=== PATIENT | female | born 1930 | race Caucasian/White ===

== ENCOUNTER 2016-06-28 09:54 | Outpatient (CLI) | payer MEDICARE, OTHER ==
[2016-06-28 13:08] LABS: #Eosinphils 0.1 thou/uL (0.0-0.7); #Lymphocytes 1.8 thou/uL (1.20-3.40); #Monocytes 0.5 thou/uL (0.11-0.59); #Neutrophils 4.9 thou/uL (1.40-6.50); %Basophils 0.6 % (0.0-1.0); %Eosinophils 0.7 % (0.0-10.0); %Lymphocytes 24.9 % (21.0-51.0); %Monocytes 7.2 % (0.0-10.0); %Neutrophils 66.6 % (42.0-75.0); Hemoglobin 14.5 g/dL (12.0-16.0); Mean Corpuscular HGB CONC 32.5 g/dL (32.0-36.0); Mean Corpuscular Volume 89.2 fl (81.0-99.0); Mean Platelet Volume 7.3 fL (7.4-10.4); Platelet Count 182 thou/uL (130-400); RBC Distribution Width 13.1 % (11.5-14.5); Red Blood Cell (RBC) Count 5.02 mill/uL (4.20-5.40); White Blood Cell (WBC) Count 7.4 thou/uL (4.8-10.8)
[2016-06-28 13:33] LABS: Hemoglobin A1c 5.2 % (4.0-6.0)
[2016-06-28 13:34] LABS: ALT (SGPT) 33 U/L (8-55); AST (SGOT) 31 U/L (5-34); Albumin 4.1 g/dL (3.4-4.8); Alkaline Phosphatase 61 U/L (40-150); Anion Gap 16 mmol/L (10-20); BUN (Urea Nitrogen) 20 mg/dL (9.8-20.1); Bilirubin, Direct 0.5 mg/dL (0.1-0.3); Bilirubin, Total 1.2 mg/dL (0.2-1.2); Calc. Creatinine Clearance 0 mL/min (70-130); Calcium 9.2 mg/dL (7.8-10.44); Carbon Dioxide 25 mmol/L (23-31); Cardiac Risk 2.2 (Less than 4.5); Chloride 102 mmol/L (98-107); Cholesterol 115 mg/dl (< 200 Desired); Estimated GFR-MDRD 58; Glucose 94 mg/dL (83-110); HDL Cholesterol 52 mg/dL (>60 Neg Risk); LDL Cholesterol, Calculated 42 mg/dL; Potassium 3.9 mmol/L (3.5-5.1); Protein, Total 6.6 g/dL (6.0-8.3); Sodium 139 mmol/L (136-145); Triglycerides 103 mg/dL (Less than 150)
[2016-06-28 14:04] LABS: INR-International Normal Ratio 2.5; Prothrombin Time 28.2 SEC (12.0-14.7)
== END 2016-06-28 09:55 ==
LOC: NAVSJIPCSP 09:54
PROVIDERS: ATTEND Family Medicine
DX: I11.0 Hypertensive heart disease with heart failure (principal); I50.21 Acute systolic (congestive) heart failure; I48.91 Unspecified atrial fibrillation; Z79.899 Other long term (current) drug therapy; Z79.01 Long term (current) use of anticoagulants
CPT/HCPCS: 36415; 80048; 80061; 80076; 83036; 84443; 85025; 85610

== ENCOUNTER 2016-08-12 11:06 | Outpatient (CLI) | payer MEDICARE ==
[2016-08-12 12:11] LABS: INR-International Normal Ratio 2.3; Prothrombin Time 26.1 SEC (12.0-14.7)
== END 2016-08-12 11:07 | disposition home or self-care (01) ==
LOC: EDBD 11:06 → MERGE 11:06 → NAVSJIPCSP 11:06
PROVIDERS: ATTEND Family Medicine
DX: Z51.81 Encounter for therapeutic drug level monitoring (principal); Z79.01 Long term (current) use of anticoagulants
CPT/HCPCS: 36415; 85610

== ENCOUNTER 2016-09-28 11:25 | Outpatient (CLI) | payer MEDICARE ==
[2016-09-28 11:49] LABS: INR-International Normal Ratio 2.6; Prothrombin Time 28.9 SEC (12.0-14.7)
== END 2016-09-28 11:26 | disposition home or self-care (01) ==
LOC: NAV LAB 11:25
PROVIDERS: ATTEND Family Medicine
DX: Z51.81 Encounter for therapeutic drug level monitoring (principal); Z79.01 Long term (current) use of anticoagulants
CPT/HCPCS: 36415; 85610

== ENCOUNTER 2017-06-06 10:38 | Inpatient (IN) | payer MEDICARE ==
[2017-06-06] MEDS ORDERED: Furosemide 40 MG/4 ML VIAL ONE ×2 (11:23→13:04)
[2017-06-06 11:31] LABS: #Basophils 0.1 thou/uL (0.0-0.2); #Lymphocytes 0.9 thou/uL (1.20-3.40); #Monocytes 0.4 thou/uL (0.11-0.59); #Neutrophils 7.9 thou/uL (1.40-6.50); %Basophils 0.6 % (0.0-1.0); %Eosinophils 0.2 % (0.0-10.0); %Lymphocytes 9.4 % (21.0-51.0); %Monocytes 4.8 % (0.0-10.0); Hemoglobin 10.1 g/dL (12.0-16.0); Mean Corpuscular HGB CONC 32.3 g/dL (32.0-36.0); Mean Corpuscular Hemoglobin 28.5 pg (27.0-31.0); Mean Corpuscular Volume 88.3 fl (81.0-99.0); Mean Platelet Volume 7.6 fL (7.4-10.4); Platelet Count 182 thou/uL (130-400); RBC Distribution Width 12.8 % (11.5-14.5); Red Blood Cell (RBC) Count 3.55 mill/uL (4.20-5.40); White Blood Cell (WBC) Count 9.3 thou/uL (4.8-10.8)
--- NOTE | 2017-06-06 11:37 | RAD ---
PORTABLE AP CHEST RADIOGRAPH: Date: 06-06-17 History: Dyspnea. Shortness of breath. Near syncopal episode. Comparison: 01-23-16 FINDINGS: The cardiac silhouette is markedly enlarged. There is ectasia and tortuosity of the thoracic aorta wh ich is also partially calcified. Pulmonary vasculature is within normal limits. There is blunting of the right lateral costophrenic angle, some of which is probably related to overlying soft tissue dens ity, but small right pleural effusion and/or atelectasis is suspected. Surgical clips again overly th e left axillary region. No other interval change. There is osteopenia. IMPRESSION: 1. Marked cardiomegaly without overt CHF. 2. Ectatic and tortuous partially calcified thoracic aorta. 3. Small right pleural effusion and atelectasis. POS: [facility]
[2017-06-06 11:41] LABS: INR-International Normal Ratio 3.4; PTT 42.8 SEC (22.9-36.1); Prothrombin Time 35.5 SEC (12.0-14.7)
[2017-06-06 11:44] LABS: CKMB 0.8 ng/mL (0-6.6)
[2017-06-06 11:47] LABS: ALT (SGPT) 14 U/L (8-55); AST (SGOT) 17 U/L (5-34); Albumin 3.9 g/dL (3.4-4.8); Alkaline Phosphatase 60 U/L (40-150); Anion Gap 17 mmol/L (10-20); BUN (Urea Nitrogen) 34 mg/dL (9.8-20.1); Bilirubin, Total 1.2 mg/dL (0.2-1.2); CK (CPK) 30 U/L (29-168); Calc. Creatinine Clearance 0 mL/min (70-130); Carbon Dioxide 26 mmol/L (23-31); Chloride 102 mmol/L (98-107); Estimated GFR-MDRD 30; Globulin 2.3 g/dL (2.4-3.5); Glucose 114 mg/dL (83-110); Potassium 3.5 mmol/L (3.5-5.1); Protein, Total 6.2 g/dL (6.0-8.3); Sodium 141 mmol/L (136-145)
[2017-06-06] MEDS ORDERED: Ondansetron HCl/PF 4 MG/2 ML Vial IVP PRN (14:00)
[2017-06-06] MEDS ORDERED: Acetaminophen 325 MG TAB PO PRN (14:00)
[2017-06-06] MEDS ORDERED: Ondansetron ODT 4 MG TAB SL PRN (14:00)
[2017-06-06 15:17] LABS: CKMB 0.8 ng/mL (0-6.6); Troponin I 0.016 ng/mL (< 0.028)
[2017-06-06] MEDS ORDERED: PROVENTIL INHALER 6.7 G (200 INHALATIONS) INH PRN (19:59)
[2017-06-06] MEDS ORDERED: Furosemide 40 MG/4 ML VIAL IVP SCH (21:00)
[2017-06-06] MEDS ORDERED: Pravastatin Sodium 40 MG TAB PO SCH (21:00)
[2017-06-06] MEDS: Montelukast Sodium 10 mg Tablet PO SCH (21:59)
[2017-06-06] MEDS: Atorvastatin Calcium 20 MG TAB PO SCH (21:59)
--- NOTE | 2017-06-06 22:12 | HP ---
DATE OF ADMISSION: 06/07/2017 HISTORY OF PRESENT ILLNESS: Ms. Meier is a very pleasant 86-year-old white female that presented to the emergency room with a 3-5 day history of shortness of breath, worse in the morning. She has h istory of CHF along with chronic atrial fibrillation, acute systolic heart failure in the past, and h ypertension. Her head mechanic is Dr. Ames. She was seen in the emergency room and found to be in acute CHF and was given IV Lasix 40 twice. She diuresed and admitted to the hospital for further evaluation and treatment. PAST MEDICAL HISTORY: Positive for the followin. Hypertension. 2. Chronic atrial fibrillation followed by Dr. Ames. 3. Hyperlipidemia. 4. Hypercholesterolemia. 5. History of arrhythmia, specifically SVT. 6. Long-term use of anticoagulant. 7. Anxiety, depressive disorder. 8. Anemia. PAST SURGICAL HISTORY: 1. 1973, appendectomy. 2. 1973, total abdominal hysterectomy. 3. 1997, breast surgery. 4. 1998, breast surgery. 5. 1990, fibrocystic disease, breast surgery. 6. 2004, right cataract done by Dr. Ramírez. 7. 2008, cholecystectomy. 8. 2009, left cataract. 9. Abdominal hernia repair with a large mesh by Dr. Jeong in 2010. FAMILY HISTORY: Reveals patient's father at age 81 of [place]. The patient's mother at age 64 of [place]. Patient has two brothers have . Patient had 2 daughters that are alive. Spouse i s . Patient has 3 brothers, 2 sisters, one son and two daughters, all healthy. SOCIAL HISTORY: Reveals patient does smoke, does not drink, does not use drugs. She has a soda or t ea once a day. She is retired and she is . She has 2 girls, 1 boy, and basically lives alone with no pets. CURRENT MEDICATIONS: Reveal she has the following, 1. Warfarin 4 mg daily. 2. Aspirin 81 mg daily. 3. Metoprolol succinate 100 mg daily. 4. Avalide, which is irbesartan-hydrochlorothiazide 300-12.5 one every day. 5. Cardizem 240 mg daily. 6. Furosemide 20 mg daily. 7. Potassium chloride 10 mEq daily. 8. Pravastatin 80 mg a day. 9. Singulair 10 mg a day every evening. 10. Bupropion 150 mg extended-release every morning. 11. ProAir 2 puffs p.r.n. wheezing. 12. Iron 325 mg daily. 13. Vitamin D3 of 1000 mg daily. 14. Marrow 128, which is ointment, ophthalmic once a day. REVIEW OF SYSTEMS: Reveal the patient has not had any fever, chills, night sweats, or weight change. Head is negative for headaches, head injury. Eyes: Negative for visual changes. Ears: Negative for change or hearing. Nose, throat, and mouth: Negative for rhinorrhea, cough, cold, or congestion . Respiratory: Negative for hemoptysis or productive sputum, but positive for dyspnea on exertion, just plain shortness of breath usually every morning. Cardiology: Negative for PND, but positive fo r edema and FONSECA. Negative for chest pain. Negative for claudication. GI: Negative for nausea, vom iting, diarrhea, constipation. Genitourinary: Negative for nocturia, urgency, frequency, hematuria, or dysuria, incontinence. Musculoskeletal: Negative for joint swelling, joint pain, stiffness, mus toya weakness. Integument: Negative for rash, skin lesions, or jaundice. Endocrine: Negative for he at or cold intolerance, hair loss, change in skin color, polydipsia, polyphagia, or polyuria. PHYSICAL EXAMINATION: GENERAL: This is a well-developed, well-nourished, very pleasant white female in no apparent distres s at this time. Apparently in the ER, she was significantly short of breath. She received diuresis and some oxygen. HEENT: Reveals normocephalic, nontraumatic cranium. Pupils are equally round and reactive. Extraoc ular muscle movements intact. Sclerae are nonicteric. NECK: Supple, without masses, nodes, or bruits. No jugular venous distention is noted. CHEST: Clear to auscultation. No rales, no rhonchi, no wheezes or cough is noted. HEART: Patient does have minimal crackles in the right and left base. Heart exam reveals irregularl y irregular rate and rhythm with a 2/6 systolic ejection murmur and the patient is in chronic atrial fib. ABDOMEN: Soft, slightly distended, nontender with normal bowel sounds. Possible fluid with mild asc ites. No CVA tenderness. EXTREMITIES: Reveal no clubbing, cyanosis, but 1+ edema. Peripheral pulses are equal and palpable. NEUROLOGIC: Patient has no focal findings. ASSESSMENT: 1. Acute on chronic systolic heart failure. 2. History of chronic atrial fibrillation. 3. Hypertension. 4. Hyperlipidemia. 5. History of arrhythmia of supraventricular tachycardia. 6. Generalized weakness. PLAN: Patient is admitted to the [facility] in [place]. We will admit h er for CHF and gently diurese her. We will follow her electrolytes and continue with IV Lasix at thi s time.
[2017-06-07 05:56] LABS: INR-International Normal Ratio 3.5; Prothrombin Time 36.8 SEC (12.0-14.7)
[2017-06-07 05:57] LABS: #Basophils 0.1 thou/uL (0.0-0.2); #Eosinphils 0.1 thou/uL (0.0-0.7); #Lymphocytes 1.7 thou/uL (1.20-3.40); #Monocytes 0.7 thou/uL (0.11-0.59); #Neutrophils 6.1 thou/uL (1.40-6.50); %Basophils 0.7 % (0.0-1.0); %Eosinophils 1.1 % (0.0-10.0); %Lymphocytes 19.7 % (21.0-51.0); %Monocytes 7.7 % (0.0-10.0); %Neutrophils 70.8 % (42.0-75.0); Hemoglobin 9.1 g/dL (12.0-16.0); Mean Corpuscular HGB CONC 32.4 g/dL (32.0-36.0); Mean Corpuscular Hemoglobin 28.7 pg (27.0-31.0); Mean Corpuscular Volume 88.6 fl (81.0-99.0); Mean Platelet Volume 7.6 fL (7.4-10.4); Platelet Count 152 thou/uL (130-400); RBC Distribution Width 12.8 % (11.5-14.5); Red Blood Cell (RBC) Count 3.18 mill/uL (4.20-5.40); White Blood Cell (WBC) Count 8.6 thou/uL (4.8-10.8)
[2017-06-07] MEDS: Furosemide 40 MG/4 ML VIAL IVP SCH ×2 (06:23→14:21)
[2017-06-07] MEDS: Dronedarone HCl 400 MG TAB PO SCH ×2 (08:11→17:12)
[2017-06-07] MEDS: Ferrous Sulfate 325 MG TAB PO SCH (08:12)
[2017-06-07] MEDS: Hydrochlorothiazide 25 MG TAB PO SCH (08:12)
[2017-06-07] MEDS: Bupropion 150 MG XL TAB PO SCH (08:12)
[2017-06-07] MEDS: Potassium Chloride 10 MEQ TAB PO SCH (08:12)
[2017-06-07] MEDS: Aspirin 81 mg Enteric Coated Tablet PO SCH (08:13)
[2017-06-07] MEDS ORDERED: Non-Formulary Item 1 EACH (Irbesartan/Hydrochlorothiazide [Irbesartan-Hctz 300-12.5 Mg Tb PO SCH (09:00)
[2017-06-07] MEDS ORDERED: Aspirin 81 mg Enteric Coated Tablet PO SCH (09:00)
[2017-06-07] MEDS ORDERED: Sodium Chloride 0.9% 10 ML ONE (14:23)
[2017-06-07] MEDS ORDERED: Warfarin Sodium 2 MG TAB PO SCH (17:00)
--- NOTE | 2017-06-07 20:26 | PRG ---
DATE OF SERVICE: 06/07/2017 SUBJECTIVE: Ms. Meier is a very pleasant 86-year-old white female, who presented to the emergency room with 3-5 day history of increasing shortness of breath, worse in the morning. She has a histor y of CHF and chronic atrial fib in the past, she has not wanted to treat those. She also has acute s ystolic heart failure in the past and hypertension. Her peoplesoft hcm developer is Dr. Ames. She was seen in the emergency room and found to be in acute CHF and was given IV Lasix twice. She was diuresed a nd admitted to the hospital for further evaluation. Today, the patient states she feels better, although she is still short of breath when she walks more than to the bathroom or back. She states she was urinating quite a bit. Unfortunately, C-reactive protein was done today instead o f her CMP. OBJECTIVE: VITAL SIGNS: Today reveal blood pressure 119/56 this morning, pulse 79, respirations 18, O2 sat 94%, T-max is 98.0. GENERAL: This is a well-developed, well-nourished, very pleasant white female, in no apparent distre ss at this time. HEENT: Reveals normocephalic, nontraumatic cranium. The pupils are equally round and reactive. Ext raocular movements are intact. Nose and throat are slightly dry, but clear. NECK: Supple without masses, nodes or bruits. LUNGS: The chest reveals no rales, rhonchi or wheezes. No cough is noted. The patient has no crack les today. Breath sounds are noted to be distant. CARDIOVASCULAR: Heart reveals irregularly irregular rate and rhythm with a 2/6 systolic ejection mur mur. The patient has chronic atrial fib. ABDOMEN: Slightly distended. It is nontender with normal bowel sounds in all 4 quadrants. It seems like the patient may have some ascites. No CVA tenderness is noted. GENITOURINARY: Deferred. EXTREMITIES: Reveal no clubbing, cyanosis with 1+ edema, which is slightly decreased in admission. Peripheral pulses are difficult to feel today. The patient has no focal findings. LABORATORY DATA: Today revealed white count 8000 with hemoglobin 9.1, hematocrit 28.2, and platelet count 152,000. Her INR is 3.5 and her Coumadin is on hold. Her BNP is up from 442.5 to 638.1. IMPRESSION: 1. Acute on chronic systolic heart failure. 2. History of chronic atrial fibrillation. 3. Hypertension. 4. Hyperlipidemia. 5. History of arrhythmia with supraventricular tachycardia. 6. Generalized weakness. PLAN: 1. The patient will continue diurese. We will repeat labs tomorrow morning. 2. We will continue to follow this patient closely. 3. The patient in the past has not wanted any heroic methods. We will continue to follow her electr olytes, especially her BNP and her renal indices. We will slowly diurese her.
[2017-06-07] MEDS: Atorvastatin Calcium 20 MG TAB PO SCH (21:16)
[2017-06-07] MEDS: Montelukast Sodium 10 mg Tablet PO SCH (21:16)
[2017-06-08 05:53] LABS: INR-International Normal Ratio 2.4; Prothrombin Time 27.5 SEC (12.0-14.7)
[2017-06-08 06:05] LABS: ALT (SGPT) 12 U/L (8-55); AST (SGOT) 19 U/L (5-34); Albumin 3.5 g/dL (3.4-4.8); Alkaline Phosphatase 52 U/L (40-150); Anion Gap 11 mmol/L (10-20); BUN (Urea Nitrogen) 35 mg/dL (9.8-20.1); Bilirubin, Total 1.2 mg/dL (0.2-1.2); Calc. Creatinine Clearance 26 mL/min (70-130); Calcium 8.6 mg/dL (7.8-10.44); Carbon Dioxide 31 mmol/L (23-31); Chloride 101 mmol/L (98-107); Estimated GFR-MDRD 30; Glucose 92 mg/dL (83-110); Potassium 3.2 mmol/L (3.5-5.1); Protein, Total 5.5 g/dL (6.0-8.3); Sodium 140 mmol/L (136-145)
[2017-06-08] MEDS: Furosemide 40 MG/4 ML VIAL IVP SCH ×2 (06:21→14:31)
[2017-06-08] MEDS: Sodium Chloride 0.9% 10 ML ONE (06:21)
[2017-06-08] MEDS ORDERED: Sodium Chloride 0.9% 10 ML ONE ×2 (06:23→15:29)
[2017-06-08] MEDS: Dronedarone HCl 400 MG TAB PO SCH ×2 (09:26→17:48)
[2017-06-08] MEDS: Ferrous Sulfate 325 MG TAB PO SCH (09:26)
[2017-06-08] MEDS: Potassium Chloride 10 MEQ TAB PO SCH (09:27)
[2017-06-08] MEDS: Hydrochlorothiazide 25 MG TAB PO SCH (09:27)
[2017-06-08] MEDS: Aspirin 81 mg Enteric Coated Tablet PO SCH (09:27)
[2017-06-08] MEDS: Bupropion 150 MG XL TAB PO SCH (09:27)
[2017-06-08] MEDS ORDERED: Warfarin Sodium 2 MG TAB PO SCH (17:00)
--- NOTE | 2017-06-08 17:02 | PRG ---
DATE OF ADMISSION: 06/06/2017 DATE OF SERVICE: 06/08/2017 HISTORY OF PRESENT ILLNESS: Ms. Meier is an 86-year-old very pleasant white female, who presented to the hospital emergency room with shortness of breath. She was deemed to have acute exacerbation of her systolic congestive heart failure. She does have a history of chronic atrial fibrillation and hypertension. Her felting machine operator is Dr. Ames. She was in the ER, given some IV Lasix and admitt ed to the hospital for continued diuresis. The patient states that today she finally feels a little bit better. She is much less short of breat h. She was able to walk around the nurse's station once. She states she has been urinating quite a bit, but she got Lasix about 20 minutes ago and has not urinated yet. The patient states she is eating well and she feels so much better. She is not short of breath just going to the bathroom. PHYSICAL EXAMINATION: VITAL SIGNS: Today reveal blood pressure this morning was 108/53, pulse 75-79, respirations 18, O2 s at on room air was not measured. T-max is 98.3. GENERAL: This is a well-developed, well-nourished, very pleasant white female, in no apparent distre ss at this time. HEENT: Reveals normocephalic, nontraumatic cranium. Pupils are equal, round, and reactive. Extraoc ular movements are intact. Nose and throat are slightly dry, but clear. NECK: Supple, without masses, nodes, or bruits. LUNGS: Chest is clear to auscultation. No rales, rhonchi or wheezes are heard. No cough is noted t vera. Breath sounds are still distant, but no crackles are noted. HEART: Reveals an irregularly irregular rate and rhythm with a 2/6 systolic murmur. Patient does duckworth ve chronic atrial fib. The patient also does have an enlarged aorta that she has declined surgery fo r. ABDOMEN: Soft, nontender, without organomegaly. Slightly distended. Normal bowel sounds noted in a ll 4 quadrants. No CVA tenderness is noted. : Deferred. EXTREMITIES: Reveal no clubbing, cyanosis, and no edema is noted today. Peripheral pulses are stabl e. LABORATORY DATA: Reveals white count 8600, hemoglobin 9.1, hematocrit 28.2 with a platelet count of 152,000. INR this morning was 2.4, so she will restart her Coumadin today. Sodium 140, potassium 3.2, chloride 101, carbon dioxide 31 with a BUN of 35 and creatinine 1.62, whic h is basically stable. Her BNP yesterday was 638. Basically stable today at 659. IMPRESSION: 1. Acute on chronic systolic heart failure. 2. History of chronic atrial fibrillation. 3. History of aortic aneurysm. 4. Hypertension. 5. Hyperlipidemia. 6. History of arrhythmia with supraventricular tachycardia. 7. Generalized weakness. 8. Chronic kidney disease, stage 3. PLAN: 1. The patient will continue with IV diuresis, most likely will decrease to oral Lasix tomorrow. 2. We will repeat labs tomorrow morning. 3. We will continue to follow this patient closely. 4. The patient has been made a DNR per her request. 5. We will continue with diuresis.
[2017-06-08] MEDS: Atorvastatin Calcium 20 MG TAB PO SCH (20:54)
[2017-06-08] MEDS: Montelukast Sodium 10 mg Tablet PO SCH (20:54)
[2017-06-09 05:18] VITALS: BMI 24.8
[2017-06-09] MEDS: Sodium Chloride 0.9% 10 ML ONE (06:22)
[2017-06-09] MEDS: Furosemide 40 MG/4 ML VIAL IVP SCH (06:23)
[2017-06-09 07:45] VITALS: BP 113/56; TEMP 97.8
[2017-06-09] MEDS: Dronedarone HCl 400 MG TAB PO SCH (08:04)
[2017-06-09] MEDS: Hydrochlorothiazide 25 MG TAB PO SCH (08:04)
[2017-06-09] MEDS: Ferrous Sulfate 325 MG TAB PO SCH (08:05)
[2017-06-09] MEDS: Aspirin 81 mg Enteric Coated Tablet PO SCH (08:05)
[2017-06-09] MEDS: Bupropion 150 MG XL TAB PO SCH (08:05)
[2017-06-09] MEDS: Potassium Chloride 10 MEQ TAB PO SCH (08:05)
== END 2017-06-09 09:58 | DRG 291 ==
LOC: EDBD → NAV ERS 10:38 → NAV ACUTE 13:52
PROVIDERS: ADMIT Family Medicine; ATTEND Family Medicine
DX: I13.0 Hypertensive heart and chronic kidney disease with heart failure and stage 1 through stage 4 chronic kidney disease, or unspecified chronic kidney disease (principal); I50.23 Acute on chronic systolic (congestive) heart failure; J44.9 Chronic obstructive pulmonary disease, unspecified; I48.2 Chronic atrial fibrillation; D64.9 Anemia, unspecified; I47.1 Supraventricular tachycardia; N18.3 Chronic kidney disease, stage 3 (moderate); E78.5 Hyperlipidemia, unspecified; Z79.01 Long term (current) use of anticoagulants; F41.9 Anxiety disorder, unspecified; F32.9 Major depressive disorder, single episode, unspecified; F17.210 Nicotine dependence, cigarettes, uncomplicated; Z66 Do not resuscitate; I25.10 Atherosclerotic heart disease of native coronary artery without angina pectoris; I71.9 Aortic aneurysm of unspecified site, without rupture
CPT/HCPCS: 36415; 71045; 80053; 82553; 83880; 84484; 85025; 85610; 85730; 86140; 93005; 96374; 96376; A4216; G8978-GP-CJ; G8979-GP-CI; J1940

== ENCOUNTER 2017-06-09 10:36 | Inpatient (IN) | payer MEDICARE ==
[2017-06-09] MEDS: Dronedarone HCl 400 MG TAB PO SCH (17:31)
[2017-06-09] MEDS: Warfarin Sodium 2 MG TAB PO SCH (17:32)
[2017-06-09] MEDS ORDERED: Milk Of Magnesia 30 ML UDCUP PO PRN (18:24)
[2017-06-09] MEDS ORDERED: Loperamide HCl 2 MG CAP PO PRN (18:24)
[2017-06-09] MEDS ORDERED: Ondansetron ODT 4 MG TAB PO PRN (18:24)
[2017-06-09] MEDS ORDERED: PROVENTIL INHALER 6.7 G (200 INHALATIONS) INH PRN (18:45)
[2017-06-09] MEDS ORDERED: Furosemide 40 MG TAB PO SCH (21:00)
[2017-06-09] MEDS ORDERED: Montelukast Sodium 10 mg Tablet PO SCH (21:00)
[2017-06-09] MEDS ORDERED: Atorvastatin Calcium 20 MG TAB PO SCH (21:00)
[2017-06-09] MEDS: Montelukast Sodium 10 mg Tablet PO SCH (21:03)
[2017-06-09] MEDS: Atorvastatin Calcium 20 MG TAB PO SCH (21:03)
--- NOTE | 2017-06-10 02:54 | HP ---
DATE OF ADMISSION: 06/09/2017 HISTORY OF PRESENT ILLNESS: Ms. Meier is a well-developed, well-nourished, very pleasant 86-year- old white female who unfortunately became significantly short of breath and was found to have acute o n chronic congestive heart failure. She also has chronic atrial fibrillation, acute systolic heart f ailure in the past, ascending aortic aneurysm, hypertension. She is followed by Dr. Ames. She did have an echocardiogram done today, which was read by Dr. Cronin and he called me about her hea rt and her aneurysm. SUBJECTIVE: The patient states she is doing well and she states she will continue to work really meryl d, so that she can become independent and go back on home, because she would like to still live by he rself before she needs more help. PAST MEDICAL HISTORY: 1. Hypertension. 2. Chronic atrial fibrillation, followed by Dr. Ames. 3. Ascending aortic aneurysm, which is now 5.2 cm per the echocardiogram done today. 4. Hyperlipidemia. 5. Hypercholesterolemia. 6. Arrhythmia, specifically SVT in the past. 7. Long-term use of anticoagulant. 8. Anxiety depressive disorder. 9. Anemia. 10. Generalized weakness. 11. Short of breath with exertion. PAST SURGICAL HISTORY: 1. 1973, appendectomy. 2. 1973, total abdominal hysterectomy. 3. 1990, fibrocystic disease breast cancer. 4. 1997, breast surgery. 5. 1998, breast surgery. 6. 2004, right cataract done by Dr. Ramírez. 7. 2008, cholecystectomy. 8. 2009, left cataract done. 9. 2010, abdominal hernia repair with large mesh. FAMILY HISTORY: The patient's mother at the age of 64 of [place]. The patient's father of an M I at age 81. The patient had 2 brothers that have . The patient has 2 daughters that are alive and healthy. Spouse is . The patient has 3 brothers, 2 sisters, 1 son, and 2 daughte rs that are all healthy. SOCIAL HISTORY: The patient does not smoke, drink, or use any drugs. She does admit to a soda or a tea once a day. She is retired and she is . She has 2 daughters and a son. She basically live s alone with no pets. PRESENT MEDICATIONS: She is presently on the following, which include 1. Albuterol 2 puffs q.4 hours p.r.n. 2. Aspirin 81 mg a day. 3. Lipitor 20 mg a day. 4. Wellbutrin XL 150 mg daily. 5. Vitamin D3, 1000 units a day. 5. Diltiazem 240 mg a day. 6. Multaq 400 mg twice a day. 7. Ferrous sulfate 325 mg a day. 8. Lasix 40 mg twice a day, oral. 9. Hydrochlorothiazide 12.5 mg daily. 10. Avapro 300 mg a day. 11. Imodium p.r.n. 12. Milk of magnesia p.r.n. 13. Metoprolol succinate 100 mg each morning. 14. Montelukast 10 mg at bedtime. 15. Zofran p.r.n. 16. Potassium chloride 10 mEq a day. 17. Warfarin 4 mg a day. REVIEW OF SYSTEMS: Constitutional: The patient denies any fever, chills, weight change, or night sw eats. Head: No headaches, head injury. HEENT: Negative for visual changes or hearing changes. Th e patient denies any nose, throat, cough, cold, or upper respiratory problems. Respiratory: The pat ient denies any cough, cold, congestion, wheezing, hemoptysis, or productive sputum. The patient stacy s have dyspnea on exertion and can barely walk to the bathroom, which is 5 feet away. That is much i mproved since she has been in the hospital. Cardiology: The patient denies any PND, but positive fo r edema and STACY. Denies any significant chest pain or claudication. Gastrointestinal: Negative for nausea, vomiting, diarrhea, constipation. Genitourinary: Negative for nocturia, frequency, urgency , hematuria, dysuria, or incontinence. Musculoskeletal: Generalized weakness, but no significant alyx int pain, stiffness, muscle weakness, or integument changes. Skin: The patient is negative for any rashes, skin lesions, or jaundice. PHYSICAL EXAMINATION: GENERAL: A well-developed, well-nourished, very pleasant white female in no apparent distress at thi s time. HEENT: Normocephalic, nontraumatic cranium. Pupils are equally round and reactive. Extraocular mov ements are intact. Nose and throat are slightly dry. NECK: Supple without masses, nodes, or bruits. CHEST: Clear to auscultation. No rales, rhonchi, or wheezes are heard. HEART: Irregularly irregular rate with a 2/6 systolic ejection murmur. The patient is in chronic at [facility]. ABDOMEN: Soft, slightly distended. Normal bowel sounds are noted in all 4 quadrants. No rebound or guarding is noted. No CVA tenderness is noted. GENITOURINARY: Deferred. EXTREMITIES: No clubbing or cyanosis with 1+ edema, which is much improved. NEUROLOGIC: The patient has no focal deficits. ASSESSMENT: 1. Generalized weakness. 2. Acute on chronic systolic heart failure. 3. History of ascending aortic aneurysm, which is now 5.2 cm. 4. Hypertension. 5. Hyperlipidemia. 6. History of arrhythmia, supraventricular tachycardia. 7. History of generalized weakness. PLAN: 1. Continue present medications. 2. The patient has been moved to swing bed, so she can continue physical therapy and occupational th erapy. 3. Continue to gently diurese her and watch her renal indices. 4. Follow the patient's electrolytes. 5. Follow the patient's anemia. 6. Encourage the patient to continue active participation in her therapy.
[2017-06-10 05:21] LABS: #Basophils 0.1 thou/uL (0.0-0.2); #Eosinphils 0.1 thou/uL (0.0-0.7); #Lymphocytes 1.5 thou/uL (1.20-3.40); #Monocytes 0.7 thou/uL (0.11-0.59); %Basophils 0.7 % (0.0-1.0); %Eosinophils 1.3 % (0.0-10.0); %Lymphocytes 17.9 % (21.0-51.0); %Monocytes 7.9 % (0.0-10.0); %Neutrophils 72.1 % (42.0-75.0); Hemoglobin 9.7 g/dL (12.0-16.0); Mean Corpuscular HGB CONC 33.8 g/dL (32.0-36.0); Mean Corpuscular Hemoglobin 29.6 pg (27.0-31.0); Mean Corpuscular Volume 87.8 fl (81.0-99.0); Mean Platelet Volume 6.9 fL (7.4-10.4); Platelet Count 173 thou/uL (130-400); RBC Distribution Width 13.5 % (11.5-14.5); Red Blood Cell (RBC) Count 3.27 mill/uL (4.20-5.40); White Blood Cell (WBC) Count 8.4 thou/uL (4.8-10.8)
[2017-06-10 05:43] LABS: ALT (SGPT) 16 U/L (8-55); AST (SGOT) 29 U/L (5-34); Albumin 3.5 g/dL (3.4-4.8); Alkaline Phosphatase 49 U/L (40-150); Anion Gap 13 mmol/L (10-20); BUN (Urea Nitrogen) 45 mg/dL (9.8-20.1); Bilirubin, Total 1.5 mg/dL (0.2-1.2); Calc. Creatinine Clearance 29 mL/min (70-130); Calcium 8.5 mg/dL (7.8-10.44); Carbon Dioxide 29 mmol/L (23-31); Chloride 100 mmol/L (98-107); Estimated GFR-MDRD 34; Globulin 2.2 g/dL (2.4-3.5); Glucose 88 mg/dL (83-110); Potassium 3.1 mmol/L (3.5-5.1); Protein, Total 5.7 g/dL (6.0-8.3); Sodium 139 mmol/L (136-145)
[2017-06-10] MEDS ORDERED: Furosemide 40 MG/4 ML VIAL SLOW IVP SCH (06:00)
[2017-06-10] MEDS: Furosemide 40 MG TAB PO SCH ×2 (06:09→14:32)
[2017-06-10] MEDS ORDERED: Dronedarone HCl 400 MG TAB PO SCH (08:00)
[2017-06-10] MEDS ORDERED: Bupropion 150 MG XL TAB PO SCH (09:00)
[2017-06-10] MEDS ORDERED: Non-Formulary Item 1 EACH (Ferrous Sulfate [Iron] 325 MG) PO SCH (09:00)
[2017-06-10] MEDS ORDERED: Potassium Chloride 10 MEQ TAB PO SCH (09:00)
[2017-06-10] MEDS ORDERED: Hydrochlorothiazide 25 MG TAB PO SCH (09:00)
[2017-06-10] MEDS: Hydrochlorothiazide 25 MG TAB PO SCH (09:42)
[2017-06-10] MEDS: Bupropion 150 MG XL TAB PO SCH (09:42)
[2017-06-10] MEDS: Ferrous Sulfate 325 MG TAB PO SCH (09:42)
[2017-06-10] MEDS: Potassium Chloride 10 MEQ TAB PO SCH (09:43)
[2017-06-10] MEDS: Aspirin 81 mg Enteric Coated Tablet PO SCH (09:43)
[2017-06-10] MEDS: Dronedarone HCl 400 MG TAB PO SCH ×2 (09:44→17:34)
[2017-06-10 13:27] VITALS: BMI 24.7
[2017-06-10] MEDS ORDERED: Warfarin Sodium 2 MG TAB PO SCH (17:00)
[2017-06-10] MEDS: Warfarin Sodium 2 MG TAB PO SCH (17:34)
[2017-06-10] MEDS: Atorvastatin Calcium 20 MG TAB PO SCH (20:49)
[2017-06-10] MEDS: Montelukast Sodium 10 mg Tablet PO SCH (20:49)
--- NOTE | 2017-06-10 22:58 | PRG ---
DATE OF SERVICE: 06/10/2017 HISTORY OF PRESENT ILLNESS: Ms. Meier is a very pleasant, well-developed, well-nourished 86-year- old white female, unfortunately became significantly short of breath, found to have acute on chronic congestive heart failure. She also had chronic atrial fibrillation, acute systolic heart failure in the past, ascending aortic aneurysm, hypertension. She is followed by Dr. Ames. She was initia lly admitted to [facility] bed. She has been diuresed and is doing much better, but sti ll very weak. Yesterday, she was transferred to the swing bed for continued physical therapy and occ upational therapy. SUBJECTIVE: The patient states she is doing much better. She is able to walk much farther than she has been able to walk in a long time. She is still getting Lasix 40 orally b.i.d. She states she is still urinating quite a bit. She states she has no complaints today. OBJECTIVE: VITAL SIGNS: Today reveal blood pressure this morning 100/53 and then following that 116/62. Pulse 61-73, respirations 19-20, O2 sat not measured. T-max is 98.5. GENERAL: This is a well-developed, well-nourished, white female who is breathing much better. HEENT: Reveals normocephalic, nontraumatic cranium. Pupils are equally round and reactive. Extraoc ular movements intact. Nose and throat are slightly dry, but clear. NECK: Supple, without mass, nodes or bruits. LUNGS: The chest is clear to auscultation. No rales, no rhonchi, no wheezes are heard today. No cr ackles heard in her bases. The patient does have an irregularly irregular rate with 2/6 systolic eje ction murmur. The patient does have chronic atrial fibrillation and she does have an ascending aorti c aneurysm which is 5.2 cm by our ultrasound. ABDOMEN: Soft, nondistended with normal bowel sounds. No rebound or guarding is noted. No CVA tend erness is noted. : Deferred. EXTREMITIES: No clubbing or cyanosis with trace edema this morning. That is certainly much improved . NEUROLOGIC: The patient has no focal deficits. LABORATORY DATA: This morning reveal white count 8400 with hemoglobin 9.7, hematocrit 28.7, platelet count 173,000. Sodium is 139, potassium 3.1, chloride 100, carbon dioxide 29. BUN is 75; creatinin e 1.47 that is improved from her previous 1.62 and 1.63. Total bilirubin is 1.5, AST is 29, ALT is 1 6. IMPRESSION: 1. Acute on chronic systolic heart failure, much improved. 2. Generalized weakness, much improved. 3. History of ascending aortic aneurysm which is now 5.2 cm. 4. Hypertension. 5. Hyperlipidemia. 6. History of arrhythmia, specifically supraventricular tachycardia. 7. Chronic atrial fibrillation. 8. History of generalized weakness. PLAN: 1. Continue present medications. 2. Continue to monitor the patient's renal indices with her Lasix 40 b.i.d. we need to. 3. Continue to follow patient's electrolytes. 4. Follow the patient's anemia. 5. Continue to have the patient participate as well. She can have physical therapy and occupational therapy.
[2017-06-11] MEDS: Furosemide 40 MG TAB PO SCH ×2 (06:13→14:21)
[2017-06-11] MEDS: Bupropion 150 MG XL TAB PO SCH (08:45)
[2017-06-11] MEDS: Dronedarone HCl 400 MG TAB PO SCH ×2 (08:45→17:05)
[2017-06-11] MEDS: Aspirin 81 mg Enteric Coated Tablet PO SCH (08:45)
[2017-06-11] MEDS: Hydrochlorothiazide 25 MG TAB PO SCH (08:46)
[2017-06-11] MEDS: Ferrous Sulfate 325 MG TAB PO SCH (08:46)
[2017-06-11] MEDS: Potassium Chloride 10 MEQ TAB PO SCH (08:47)
--- NOTE | 2017-06-11 09:54 | PRG ---
DATE OF SERVICE: 06/11/[address] Christian Tena. SUBJECTIVE: The patient is sitting up in a chair, has gone to the bathroom, feels well. No shortnes s of breath at rest and decreasing shortness of breath on exertion, still walking with a walker. Aft er had exacerbation of her congestive heart failure which has improved greatly with IV and now oral L asix, she has been totally asymptomatic from her significant 5.2 cm thoracic aneurysm and reiterates that she does not wish any evaluation or treatment of this. OBJECTIVE: VITAL SIGNS: Her blood pressure is 112/53, pulse is 73, temperature is 98.2, O2 sats 94% on room air . LUNGS: Clear. CARDIAC EXAMINATION: Displays irregularly irregular rhythm with a 2/6 systolic ejection murmur. ABDOMEN: Soft and nontender. SKIN AND EXTREMITIES: Showed no edema. ASSESSMENT: 1. Resolving acute on chronic systolic heart failure. 2. Stable, but significantly enlarged ascending aortic aneurysm of 5.2. 3. Stable atrial fibrillation versus supraventricular tachycardia. 4. Hypertension, stable. PLAN: 1. Continue Multaq, diltiazem, furosemide 40 twice daily. Continue warfarin 4 mg daily. The patien t does appear to have atrial fibrillation and resolving systolic heart failure. 2. Continue PT, OT with therapist and walking with the son is approved. 3. Continue DNR and confirmed that patient does not wish for any treatment or evaluation of aneurysm .
[2017-06-11 10:16] LABS: INR-International Normal Ratio 1.7; Prothrombin Time 20.3 SEC (12.0-14.7)
[2017-06-11] MEDS: Warfarin Sodium 2 MG TAB PO SCH (17:05)
[2017-06-11] MEDS: Atorvastatin Calcium 20 MG TAB PO SCH (20:44)
[2017-06-11] MEDS: Montelukast Sodium 10 mg Tablet PO SCH (20:44)
[2017-06-12 05:25] LABS: INR-International Normal Ratio 1.7; Prothrombin Time 20.6 SEC (12.0-14.7)
[2017-06-12] MEDS: Furosemide 40 MG TAB PO SCH ×2 (06:09→14:05)
[2017-06-12] MEDS: Hydrochlorothiazide 25 MG TAB PO SCH (08:51)
[2017-06-12] MEDS: Potassium Chloride 10 MEQ TAB PO SCH (08:51)
[2017-06-12] MEDS: Ferrous Sulfate 325 MG TAB PO SCH (08:51)
[2017-06-12] MEDS: Bupropion 150 MG XL TAB PO SCH (08:51)
[2017-06-12] MEDS: Dronedarone HCl 400 MG TAB PO SCH ×2 (08:51→17:25)
[2017-06-12] MEDS: Aspirin 81 mg Enteric Coated Tablet PO SCH (08:51)
[2017-06-12] MEDS ORDERED: Calcium Carbonate 500 MG ChewTAB PO PRN (13:59)
[2017-06-12] MEDS: Warfarin Sodium 2 MG TAB PO SCH (17:35)
[2017-06-12] MEDS: Warfarin Sodium 1 MG TAB PO SCH (17:38)
[2017-06-12] MEDS: Montelukast Sodium 10 mg Tablet PO SCH (21:05)
[2017-06-12] MEDS: Atorvastatin Calcium 20 MG TAB PO SCH (21:05)
--- NOTE | 2017-06-12 21:37 | PRG ---
DATE OF SERVICE: 06/12/2017 SUBJECTIVE: The patient feels much better. No shortness of breath, chest pain, palpitation. Has be en up moving around in the room. She has denied any chest pain. OBJECTIVE: LUNGS: Show only a rare crackle in the bases. CARDIAC: Showed irregularly irregular rhythm. VITAL SIGNS: Show blood pressure of 118/58, temperature 97.4, pulse 63 and irregular, respirations 1 9, O2 sats 97% on room air. SKIN AND EXTREMITIES: Show no edema. Intake and output shows 1940 in over the last day with 1840 out. ASSESSMENT: Stable diastolic heart failure exacerbation, on oral Lasix. Stable thoracic aneurysm. PLAN: Decrease furosemide to 40 mg daily. Check base met profile in the a.m. Discuss home dose of furosemide with Dr. Tena.
[2017-06-13 05:26] LABS: INR-International Normal Ratio 1.8; Prothrombin Time 21.7 SEC (12.0-14.7)
[2017-06-13 05:33] LABS: Anion Gap 13 mmol/L (10-20); BUN (Urea Nitrogen) 46 mg/dL (9.8-20.1); Calc. Creatinine Clearance 33 mL/min (70-130); Carbon Dioxide 31 mmol/L (23-31); Chloride 98 mmol/L (98-107); Estimated GFR-MDRD 39; Glucose 91 mg/dL (83-110); Potassium 3.3 mmol/L (3.5-5.1); Sodium 139 mmol/L (136-145)
[2017-06-13] MEDS: Potassium Chloride 10 MEQ TAB PO SCH (08:38)
[2017-06-13] MEDS: Hydrochlorothiazide 25 MG TAB PO SCH (08:38)
[2017-06-13] MEDS: Dronedarone HCl 400 MG TAB PO SCH ×2 (08:38→17:32)
[2017-06-13] MEDS: Bupropion 150 MG XL TAB PO SCH (08:39)
[2017-06-13] MEDS: Aspirin 81 mg Enteric Coated Tablet PO SCH (08:39)
[2017-06-13] MEDS: Furosemide 40 MG TAB PO SCH (08:39)
[2017-06-13] MEDS: Ferrous Sulfate 325 MG TAB PO SCH (08:39)
[2017-06-13] MEDS: Warfarin Sodium 1 MG TAB PO SCH (17:33)
--- NOTE | 2017-06-13 20:00 | PRG ---
DATE OF SERVICE: 06/13/2017 SUBJECTIVE: Ms. Meier is a very pleasant 86-year-old white female that was found to have acute on chronic congestive heart failure. She had chronic atrial fibrillation, ascending aortic aneurysm, a nd hypertension. She was admitted to [facility] for the acute bed and was diuresed and transf erred to the swing bed. She seems to be doing better and is less short of breath, but continues to b e very weak. She previously was independent and now is walking either with a walker or a single-tip cane. The patient is not able to do near as much with a single-tip cane. She has no complaints, but states she has to be very careful because she is so weak. OBJECTIVE: VITAL SIGNS: Blood pressure 115/54, pulse 68, respirations 18, O2 sat 96% on room air, T-max 97.1. GENERAL: This is a well-developed, well-nourished, very pleasant white female in no apparent distres s at this time. HEENT: Reveals normocephalic, nontraumatic cranium. Pupils equal, round, and reactive. Extraocular movements intact. Nose and throat are slightly dry, but clear. NECK: Supple without masses or bruits. CHEST: Clear to auscultation. No rales, rhonchi, or wheezes are heard. No coughs are heard today. No crackles are heard again. HEART: Irregularly irregular and a 2/6 systolic ejection murmur is noted, which she has had for a lo ng time. The patient has had an ascending aorta, which is 5.10 cm per ultrasound. ABDOMEN: Soft, nontender without organomegaly. Normal bowel sounds are noted. No rebound or guardi ng is noted. GENITOURINARY: Deferred. EXTREMITIES: Revealed no clubbing, cyanosis, or edema. NEUROLOGIC: The patient has no focal deficits. IMPRESSION: 1. Acute on chronic systolic heart failure, much improved. 2. Significant generalized weakness, slowly improving. 3. History of ascending aortic aneurysm, which is now 5.2 cm. 4. Hypertension. 5. Hyperlipidemia. 6. History of arrhythmia, specifically, supraventricular tachycardia. 7. Atrial fibrillation. 8. Hyperlipidemia. 9. Generalized weakness. PLAN: 1. Continue present medications. 2. Continue Lasix 40 mg p.o. q.a.m. 3. Continue to follow the patient's electrolytes. 4. Follow the patient's anemia. 5. Continue to encourage the patient to continue stress ulcer prophylaxis. 6. Continue deep venous thrombosis prophylaxis. 7. Continue decubitus precautions. 8. Continue physical therapy and occupational therapy.
[2017-06-13] MEDS: Montelukast Sodium 10 mg Tablet PO SCH (20:37)
[2017-06-13] MEDS: Atorvastatin Calcium 20 MG TAB PO SCH (20:37)
[2017-06-14 05:18] LABS: INR-International Normal Ratio 2.2; Prothrombin Time 24.9 SEC (12.0-14.7)
[2017-06-14] MEDS: Bupropion 150 MG XL TAB PO SCH (08:16)
[2017-06-14] MEDS: Aspirin 81 mg Enteric Coated Tablet PO SCH (08:16)
[2017-06-14] MEDS: Furosemide 40 MG TAB PO SCH (08:16)
[2017-06-14] MEDS: Ferrous Sulfate 325 MG TAB PO SCH (08:16)
[2017-06-14] MEDS: Potassium Chloride 10 MEQ TAB PO SCH (08:16)
[2017-06-14] MEDS: Dronedarone HCl 400 MG TAB PO SCH ×2 (08:17→17:38)
[2017-06-14] MEDS: Hydrochlorothiazide 25 MG TAB PO SCH (08:17)
--- NOTE | 2017-06-14 12:06 | PRG ---
DATE OF SERVICE: 06/14/2017 DATE OF ADMISSION: 06/09/2017 HISTORY OF PRESENT ILLNESS: Ms. Meier very pleasant 86-year-old white female with congestive hear t failure, chronic atrial fibrillation, ascending aortic aneurysm, and hypertension. She was admitte d to the hospital in acute failure and was diuresed and transferred to swing bed. She is doing johan r and is getting lots of physical therapy. Finally, her shortness of breath is getting less and she began to walk better and get much stronger. She still does like using a single tip cane because she has to walk and work pretty hard. She has no complaints, but she continues to get better. PHYSICAL EXAMINATION: VITAL SIGNS: Today reveal blood pressure 108/54, pulse 65-72, respirations 16-18, O2 sat 96%-98% on room air, T-max 97.6. GENERAL: This is a well-developed, well-nourished, very pleasant white female in no apparent distres s at this time. HEENT: Reveals normocephalic, nontraumatic cranium. Pupils are equal, round, and reactive. Extraoc ular movements are intact. Nose and throat are slightly dry. NECK: Supple without mass, nodes or bruits. CHEST: Clear to auscultation. No rales, no rhonchi, no wheezes are heard. HEART: Reveals irregularly irregular rate and rhythm. Patient does have 2/6 systolic ejection murmu r, which is noted she has had that for long time. Patient has an ascending aortic aneurysm which is 5.2 cm. ABDOMEN: Soft and nontender without organomegaly. Normal bowel sounds are noted. No rebound or gua rding is noted. GENITOURINARY: Exam is deferred. EXTREMITIES: Reveal no clubbing, cyanosis or edema. NEUROLOGIC: The patient has no focal deficits. IMPRESSION: 1. Acute on chronic systolic heart failure continues to slowly improve. 2. History of ascending aortic aneurysm which is not 5.2. 3. Hypertension. 4. Hyperlipidemia. 5. History of arrhythmia, specifically supraventricular tachycardia. 6. Atrial fibrillation. 7. Hyperlipidemia. 8. Generalized weakness. PLAN: 1. Continue present meds. 2. Continue Lasix 40 q.a.m. 3. Follow patient's electrolytes. 4. Follow patient's anemia. 5. Continue stress ulcer prophylaxis. 6. DVT prophylaxis. 7. Decubitus precautions. 8. Physical therapy and occupational therapy.
[2017-06-14] MEDS: Warfarin Sodium 1 MG TAB PO SCH (17:37)
[2017-06-14] MEDS: Montelukast Sodium 10 mg Tablet PO SCH (20:47)
[2017-06-14] MEDS: Atorvastatin Calcium 20 MG TAB PO SCH (20:52)
[2017-06-15 05:31] LABS: INR-International Normal Ratio 2.1; Prothrombin Time 24.3 SEC (12.0-14.7)
[2017-06-15] MEDS: Furosemide 40 MG TAB PO SCH (08:50)
[2017-06-15] MEDS: Aspirin 81 mg Enteric Coated Tablet PO SCH (08:50)
[2017-06-15] MEDS: Bupropion 150 MG XL TAB PO SCH (08:51)
[2017-06-15] MEDS: Ferrous Sulfate 325 MG TAB PO SCH (08:51)
[2017-06-15] MEDS: Hydrochlorothiazide 25 MG TAB PO SCH (08:51)
[2017-06-15] MEDS: Dronedarone HCl 400 MG TAB PO SCH ×2 (08:51→18:04)
[2017-06-15] MEDS: Potassium Chloride 10 MEQ TAB PO SCH (08:51)
[2017-06-15] MEDS: Warfarin Sodium 1 MG TAB PO SCH (18:04)
[2017-06-15] MEDS: Atorvastatin Calcium 20 MG TAB PO SCH (20:36)
[2017-06-15] MEDS: Montelukast Sodium 10 mg Tablet PO SCH (20:36)
--- NOTE | 2017-06-15 20:55 | PRG ---
DATE OF SERVICE: 06/15/2017 DATE OF ADMISSION: 06/09/2017 HISTORY OF PRESENT ILLNESS: Ms. Meier is a very pleasant 86-year-old white female presented to [facility] emergency room with acute congestive heart failure, chronic atrial fibrillation, ascending aortic a neurysm, and hypertension. She was initially admitted to the hospital with acute failure and diurese d and transferred to swing bed. She is doing much better and getting lots of therapy. She is gettin g much stronger. SUBJECTIVE: The patient states today is the best day she has felt so far. She feels like she has a lot more energy and is able to get up and move her a lot better without being short of breath or with out worrying. She states she does not like using a single-tip cane because she has to work much hard er, but she is getting better with that. OBJECTIVE: VITAL SIGNS: Reveal blood pressure 101/48, pulse 73-84, saturation 96%-98% on room air, T-max 97.9. GENERAL: This is a well-developed, well-nourished, very pleasant white female in no apparent distres s at this time. HEENT: Reveals normocephalic, nontraumatic cranium. Pupils equally round and reactive. Extraocular movements intact. Nose and throat are slightly dry. NECK: Supple without mass, nodes, or bruits. LUNGS: Chest is clear to auscultation. No cough is noted. No rales, no rhonchi, no wheezes are hea rd. HEART: Reveals an irregularly irregular heart rate and rhythm. Patient is a 2/6 systolic ejection m urmur. Patient has an ascending aortic aneurysm, which is 5.2 cm. ABDOMEN: Soft, nontender without organomegaly. Normal bowel sounds are noted in all 4 quadrants. N o rebound or guarding is noted. : Deferred. EXTREMITIES: Reveal no clubbing, cyanosis, or edema. NEUROLOGIC: Patient has no focal deficits, just generalized weakness, which is significantly improve d. IMPRESSION: 1. Acute on chronic systolic heart failure that continues to improve. 2. History of ascending aortic aneurysm, which is now at 5.2 cm. 3. Hypertension. 4. History of arrhythmias specifically supraventricular tacycardia. 5. Hyperlipidemia. 6. Atrial fibrillation. 7. Hyperlipidemia. 8. Generalized weakness. PLAN: 1. Continue present medications. 2. Continue Lasix 40 q.a.m. 3. Follow the patient's electrolytes. 4. Follow the patient's anemia. 5. Continue stress ulcer prophylaxis. 6. DVT prophylaxis. 7. Decubitus precautions. 8. Physical therapy and occupational therapy.
[2017-06-16 05:42] LABS: INR-International Normal Ratio 1.9; Prothrombin Time 22.6 SEC (12.0-14.7)
[2017-06-16] MEDS: Dronedarone HCl 400 MG TAB PO SCH ×2 (08:13→17:43)
[2017-06-16] MEDS: Hydrochlorothiazide 25 MG TAB PO SCH (08:13)
[2017-06-16] MEDS: Furosemide 40 MG TAB PO SCH (08:13)
[2017-06-16] MEDS: Potassium Chloride 10 MEQ TAB PO SCH (08:13)
[2017-06-16] MEDS: Bupropion 150 MG XL TAB PO SCH (08:13)
[2017-06-16] MEDS: Ferrous Sulfate 325 MG TAB PO SCH (08:13)
[2017-06-16] MEDS: Aspirin 81 mg Enteric Coated Tablet PO SCH (08:14)
[2017-06-16] MEDS: Warfarin Sodium 1 MG TAB PO SCH (17:42)
[2017-06-16] MEDS: Montelukast Sodium 10 mg Tablet PO SCH (20:21)
[2017-06-16] MEDS: Atorvastatin Calcium 20 MG TAB PO SCH (20:21)
--- NOTE | 2017-06-16 21:38 | PRG ---
DATE OF SERVICE: 06/16/2017 HISTORY OF PRESENT ILLNESS: Ms. Meier is a very pleasant 86-year-old white female who presented t o the ER in acute congestive heart failure, chronic atrial fibrillation, ascending aortic aneurysm, a nd a hypertensive episode. She was admitted to the hospital with acute failure, diuresed, and transf erred to swing bed. She continues to do much better and she is getting much stronger with the therap y. SUBJECTIVE: The patient states she feels even better today than she did yesterday. She is walking m uch better with a cane and not as wobbly. She still does not like using a single-tip cane, but she i s working harder and getting better. OBJECTIVE: VITAL SIGNS: Blood pressure 109/53, pulse 58, respirations 17-18, O2 saturation 93%-94% on room air, T-max 97.8. GENERAL: This is a well-developed, well-nourished, slightly obese white female in no apparent distre ss at this time. HEENT: Normocephalic, nontraumatic cranium. Pupils equally round and reactive. Extraocular movemen ts intact. Nose and throat are slightly dry. NECK: Supple without masses, nodes, or bruits. CHEST: Clear to auscultation. No rales, rhonchi, wheezes, or cough is heard. CARDIOVASCULAR: Irregularly irregular rate and rhythm. The patient does have a 2/6 systolic ejectio n murmur. The patient also has an ascending aortic aneurysm, which is 5.2 cm. She does not request any surgery, actually requests not to have surgery. ABDOMEN: Soft and nontender without organomegaly. Normal bowel sounds are noted. No rebound or gua rding is noted. : Deferred. EXTREMITIES: No clubbing, cyanosis, or edema. NEUROLOGIC: The patient has no significant focal deficits. The patient's generalized weakness is si gnificantly improving. IMPRESSION: 1. Acute on chronic systolic heart failure that continues to improve. 2. History of ascending aortic aneurysm, which is now 5.2 cm. 3. Hypertension. 4. History of arrhythmia, specifically supraventricular tachycardia. 5. Hyperlipidemia. 6. Atrial fibrillation. 7. Generalized weakness. PLAN: 1. Continue Lasix 40 mg a day. 2. Follow the patient's electrolytes. 3. Follow the patient's anemia. 4. Continue stress ulcer prophylaxis. 5. DVT prophylaxis. 6. Decubitus precautions. 7. Continue PT and OT.
[2017-06-17 05:58] LABS: INR-International Normal Ratio 2.3; Prothrombin Time 25.8 SEC (12.0-14.7)
[2017-06-17] MEDS: Furosemide 40 MG TAB PO SCH (07:25)
[2017-06-17] MEDS: Hydrochlorothiazide 25 MG TAB PO SCH (08:52)
[2017-06-17] MEDS: Potassium Chloride 10 MEQ TAB PO SCH (08:52)
[2017-06-17] MEDS: Dronedarone HCl 400 MG TAB PO SCH ×2 (08:53→17:27)
[2017-06-17] MEDS: Ferrous Sulfate 325 MG TAB PO SCH (08:53)
[2017-06-17] MEDS: Bupropion 150 MG XL TAB PO SCH (08:53)
[2017-06-17] MEDS: Aspirin 81 mg Enteric Coated Tablet PO SCH (08:53)
[2017-06-17] MEDS: Warfarin Sodium 2 MG TAB PO SCH (17:27)
--- NOTE | 2017-06-17 17:43 | PRG ---
DATE OF SERVICE: 06/17/2017 HISTORY OF PRESENT ILLNESS: Ms. Meier is a very pleasant 86-year-old white female who presented t o the ER in acute congestive failure, chronic atrial fibrillation and hypertension. She has been to the hospital with acute failure, diuresed and transferred to the swing bed. She continued to do much better and getting stronger with her PT and OT each day. She will be discharged sometime next week. SUBJECTIVE: The patient states she is so much better. She is able to get up and walk with her walke r to the bathroom and that was important to her. OBJECTIVE: VITAL SIGNS: Reveal blood pressure 128/57, pulse 61-75, respirations 18, O2 sat 95-96% on room air, T-max 98.3. GENERAL: This is a well-developed, well-nourished, slightly obese white female in no apparent distre ss at this time. HEENT: Reveals normocephalic, nontraumatic cranium. Pupils equal, round, and reactive. Extraocular movements intact. Nose and throat are slightly dry. NECK: Supple, without mass, nodes or bruits. LUNGS: Chest is clear to auscultation. No rales, rhonchi or wheezes are heard. HEART: Reveals an irregularly irregular rate and rhythm. The patient does have a 2/6 systolic eject ion murmur. The patient has an ascending aortic aneurysm which was 5.2 cm on her last echocardiogram . She actually is refusing any surgery for that. ABDOMEN: Soft, nontender, without organomegaly, normal bowel sounds are noted. No rebound or guardi ng is noted. : Deferred. EXTREMITIES: Reveal no clubbing, cyanosis or edema. NEUROLOGIC: The patient has no focal deficits. The patient has generalized weakness and is improvin g. IMPRESSION: 1. Acute on chronic systolic heart failure, continues to improve. 2. History of ascending aortic aneurysm which is now 5.2 cm. 3. Hypertension. 4. History of arrhythmia. 5. Hyperlipidemia. 6. Atrial fibrillation. 7. Generalized weakness. PLAN: 1. Continue Lasix 40 mg daily. 2. Follow the patient's electrolytes closely. 3. Follow the patient's anemia. 4. Continue stress ulcer prophylaxis. 5. DVT prophylaxis. 6. Decubitus precautions. 7. Continue PT and OT.
[2017-06-17] MEDS: Montelukast Sodium 10 mg Tablet PO SCH (20:05)
[2017-06-17] MEDS: Atorvastatin Calcium 20 MG TAB PO SCH (20:05)
[2017-06-18 06:10] LABS: #Basophils 0.1 thou/uL (0.0-0.2); #Eosinphils 0.1 thou/uL (0.0-0.7); #Lymphocytes 1.4 thou/uL (1.20-3.40); #Monocytes 0.7 thou/uL (0.11-0.59); #Neutrophils 5.5 thou/uL (1.40-6.50); %Basophils 0.7 % (0.0-1.0); %Eosinophils 1.3 % (0.0-10.0); %Lymphocytes 17.7 % (21.0-51.0); %Monocytes 8.7 % (0.0-10.0); %Neutrophils 71.5 % (42.0-75.0); Hemoglobin 11.7 g/dL (12.0-16.0); Mean Corpuscular HGB CONC 31.4 g/dL (32.0-36.0); Mean Corpuscular Hemoglobin 28.4 pg (27.0-31.0); Mean Corpuscular Volume 90.4 fl (81.0-99.0); Mean Platelet Volume 6.8 fL (7.4-10.4); Platelet Count 204 thou/uL (130-400); RBC Distribution Width 14.6 % (11.5-14.5); Red Blood Cell (RBC) Count 4.12 mill/uL (4.20-5.40); White Blood Cell (WBC) Count 7.6 thou/uL (4.8-10.8)
[2017-06-18 06:13] LABS: INR-International Normal Ratio 2.2; Prothrombin Time 25.2 SEC (12.0-14.7)
[2017-06-18 06:20] LABS: Anion Gap 12 mmol/L (10-20); BUN (Urea Nitrogen) 41 mg/dL (9.8-20.1); Calc. Creatinine Clearance 38 mL/min (70-130); Calcium 8.6 mg/dL (7.8-10.44); Carbon Dioxide 29 mmol/L (23-31); Chloride 102 mmol/L (98-107); Estimated GFR-MDRD 47; Glucose 86 mg/dL (83-110); Potassium 4.2 mmol/L (3.5-5.1); Sodium 139 mmol/L (136-145)
[2017-06-18] MEDS: Dronedarone HCl 400 MG TAB PO SCH ×2 (07:32→17:10)
[2017-06-18] MEDS: Furosemide 40 MG TAB PO SCH (07:32)
[2017-06-18] MEDS: Bupropion 150 MG XL TAB PO SCH (08:59)
[2017-06-18] MEDS: Aspirin 81 mg Enteric Coated Tablet PO SCH (08:59)
[2017-06-18] MEDS: Ferrous Sulfate 325 MG TAB PO SCH (08:59)
[2017-06-18] MEDS: Hydrochlorothiazide 25 MG TAB PO SCH (09:00)
[2017-06-18] MEDS: Potassium Chloride 10 MEQ TAB PO SCH (09:00)
--- NOTE | 2017-06-18 11:21 | PRG ---
DATE OF SERVICE: 06/18/2017 SUBJECTIVE: Ms. Meier is doing well. Denies any complaints, resting comfortably up in her chair. No family at bedside, discussed with nursing. OBJECTIVE: VITAL SIGNS: She is afebrile, heart rate 61, respirations 18, oxygen saturation 97% on room air, and blood pressure 114/58. CARDIOVASCULAR SYSTEM: S1, S2 plus. RESPIRATORY SYSTEM: Normal vesicular breath sounds. ABDOMEN: Soft, nontender, bowel sounds heard in all quadrants. EXTREMITIES: Without cyanosis or clubbing. Peripheral pulses are palpable. CENTRAL NERVOUS SYSTEM: Improving deconditioning. LABORATORY VALUES: White count is 7.6, hemoglobin and hematocrit is 11.7 and 37.2 with a platelet co unt of 204. Sodium 139, potassium 4.2, BUN and creatinine 41 and 1.10, it was 46 and 1.29 on 30. BNP is 506.8. IMPRESSION: 1. Improving acute on chronic systolic congestive heart failure. 2. Hypertension, well controlled. 3. Dyslipidemia. 4. Atrial fibrillation. 5. Improving deconditioning. PLAN: 1. Continue current medications. 2. Nutritional support. 3. Heart healthy diet. 4. Strict I's and O's. 5. Watch for any decompensation of heart failure. 6. Monitor heart rate and rhythm. 7. Routine laboratory values mainly to monitor her renal function. 8. Therapy. 9. Discussed with patient in detail. All questions answered.
[2017-06-18] MEDS: Warfarin Sodium 2 MG TAB PO SCH (17:11)
[2017-06-18] MEDS: Atorvastatin Calcium 20 MG TAB PO SCH (20:56)
[2017-06-18] MEDS: Montelukast Sodium 10 mg Tablet PO SCH (20:56)
[2017-06-19 05:44] LABS: INR-International Normal Ratio 2.2; Prothrombin Time 25.1 SEC (12.0-14.7)
[2017-06-19] MEDS: Dronedarone HCl 400 MG TAB PO SCH ×2 (08:20→16:50)
[2017-06-19] MEDS: Furosemide 40 MG TAB PO SCH (08:21)
[2017-06-19] MEDS: Hydrochlorothiazide 25 MG TAB PO SCH (08:21)
[2017-06-19] MEDS: Potassium Chloride 10 MEQ TAB PO SCH (08:21)
[2017-06-19] MEDS: Bupropion 150 MG XL TAB PO SCH (08:22)
[2017-06-19] MEDS: Aspirin 81 mg Enteric Coated Tablet PO SCH (08:22)
[2017-06-19] MEDS: Ferrous Sulfate 325 MG TAB PO SCH (08:22)
--- NOTE | 2017-06-19 12:06 | PRG ---
DATE OF SERVICE: 06/19/2017 SUBJECTIVE: Ms. Meier is doing well. Her family is in the room. She denies any complaints. She is going to go for a walk later on today. OBJECTIVE: VITAL SIGNS: She is afebrile, heart rate 71, respirations 22, oxygen saturation 96% on room air, blo od pressure 123/58. CARDIOVASCULAR: S1, S2 plus. RESPIRATORY: Normal vesicular breath sounds. ABDOMEN: Soft, nontender, bowel sounds heard in all quadrants. EXTREMITIES: Without cyanosis or clubbing. IMPRESSION: 1. Resolving acute on chronic systolic congestive heart failure. 2. Hypertension, well controlled. 3. Dyslipidemia. 4. Atrial fibrillation, rate controlled. 5. Improving deconditioning. PLAN: 1. Continue current medications. 2. Nutritional support. 3. DVT and stress ulcer prophylaxis. 4. Decubitus precautions. 5. Routine laboratory values. 6. Monitor blood pressure and adjust medications as needed. 7. Monitor for any signs or symptoms of decompensation of heart failure.
[2017-06-19] MEDS: Warfarin Sodium 2 MG TAB PO SCH (16:50)
[2017-06-19] MEDS: Atorvastatin Calcium 20 MG TAB PO SCH (21:12)
[2017-06-19] MEDS: Montelukast Sodium 10 mg Tablet PO SCH (21:12)
[2017-06-20 06:13] LABS: INR-International Normal Ratio 2.3; Prothrombin Time 25.8 SEC (12.0-14.7)
[2017-06-20] MEDS: Potassium Chloride 10 MEQ TAB PO SCH (07:49)
[2017-06-20] MEDS: Hydrochlorothiazide 25 MG TAB PO SCH (07:49)
[2017-06-20] MEDS: Dronedarone HCl 400 MG TAB PO SCH ×2 (07:50→17:15)
[2017-06-20] MEDS: Furosemide 40 MG TAB PO SCH (07:50)
[2017-06-20] MEDS: Ferrous Sulfate 325 MG TAB PO SCH (07:50)
[2017-06-20] MEDS: Aspirin 81 mg Enteric Coated Tablet PO SCH (07:50)
[2017-06-20] MEDS: Bupropion 150 MG XL TAB PO SCH (07:50)
[2017-06-20] MEDS: Warfarin Sodium 2 MG TAB PO SCH (17:14)
--- NOTE | 2017-06-20 21:06 | PRG ---
DATE OF SERVICE: 06/20/2017 HISTORY OF PRESENT ILLNESS: Ms. Meier is a very pleasant 86-year-old white female, who presented to the ER with acute congestive heart failure, chronic atrial fibrillation, and acute respiratory [place]. She was diuresed, transferred to swing bed, and continue to do much better. She was transferr ed to swing bed for mainly physical therapy, occupational therapy, and to watch her CHF. She is doin g really well and I anticipate discharge date is Tuesday. SUBJECTIVE: The patient states she is doing much better. She is got much stronger. Walks with a wa lker times and then times with a single-tip cane. OBJECTIVE: VITAL SIGNS: This morning reveals blood pressure 122/59, pulse 72, respirations 20-21, O2 sat 97% on room air, T-max 98.2. GENERAL: This is a well-developed, well-nourished, very pleasant white female in no apparent distres s at this time. HEENT: Reveals normocephalic, nontraumatic cranium. Pupils equally round and reactive. Extraocular movements intact. Nose and throat are slightly dry. NECK: Supple, without mass, nodes or bruits. LUNGS: Chest is clear to auscultation. No rales, rhonchi, or wheezes are heard. HEART: Reveals an irregularly irregular rate and rhythm. Patient does have a 2/6 systolic ejection murmur. The patient has also an ascending aortic aneurysm, which is 5.2 cm and she is refusing surge ry. ABDOMEN: Soft, nontender, without organomegaly, normal bowel sounds are noted in all 4 quadrants. N o rebound or guarding is noted. : Deferred. EXTREMITIES: Reveal no clubbing, cyanosis or edema. NEUROLOGIC: No focal deficits. The patient has generalized weakness has continued improvement. IMPRESSION: 1. Acute on chronic systolic heart failure. 2. History of ascending aortic aneurysm, which is now 5.2 cm. 3. Hypertension. 4. History of arrhythmia. 5. Hyperlipidemia. 6. Atrial fibrillation. 7. Generalized weakness. 8. Continue Lasix 40 mg daily. 9. Follow the patient's electrolytes closely. 10. Follow the patient's anemia. 11. Congestive Continue stress ulcer prophylaxis. 12. DVT prophylaxis. 13. Decubitus precautions. 14. Continue physical therapy and occupational therapy.
[2017-06-20] MEDS: Montelukast Sodium 10 mg Tablet PO SCH (21:34)
[2017-06-20] MEDS: Atorvastatin Calcium 20 MG TAB PO SCH (21:34)
[2017-06-21 06:07] LABS: INR-International Normal Ratio 2.4; Prothrombin Time 26.8 SEC (12.0-14.7)
[2017-06-21] MEDS: Bupropion 150 MG XL TAB PO SCH (07:53)
[2017-06-21] MEDS: Dronedarone HCl 400 MG TAB PO SCH ×2 (07:53→17:10)
[2017-06-21] MEDS: Furosemide 40 MG TAB PO SCH (07:53)
[2017-06-21] MEDS: Aspirin 81 mg Enteric Coated Tablet PO SCH (07:53)
[2017-06-21] MEDS: Ferrous Sulfate 325 MG TAB PO SCH (07:54)
[2017-06-21] MEDS: Hydrochlorothiazide 25 MG TAB PO SCH (07:54)
[2017-06-21] MEDS: Potassium Chloride 10 MEQ TAB PO SCH (07:55)
[2017-06-21] MEDS: Warfarin Sodium 2 MG TAB PO SCH (17:10)
--- NOTE | 2017-06-21 18:09 | PRG ---
DATE OF SERVICE: 06/21/2017 DATE OF ADMISSION: 06/09/2017 Ms. Meier is a very pleasant 86-year-old white female that presented to the emergency room with ac [place] respiratory failure secondary to acute congestive heart failure, chronic atrial fib. She was adm itted to the hospital and diuresed. She eventually was transferred to swing bed to continue her phys ical therapy and occupational therapy. She has actually done very well and is ready for discharge mo st likely tomorrow morning. SUBJECTIVE: The patient states she is doing much better. She states she is walking much better, her stamina is much better, and her balance is much better. PHYSICAL EXAMINATION: VITAL SIGNS: Reveals blood pressure this morning 147/66, pulse 64, respirations 18, O2 sat 97% on ro om air, T-max 98.0. GENERAL: This is a well-developed, well-nourished, very pleasant white female in no apparent distres s at this time. HEENT: Reveals normocephalic, nontraumatic cranium. Pupils equal, round, reactive. Extraocular mov ements intact. Nose and throat are slightly dry, but clear. NECK: Supple without mass, nodes, bruits. LUNGS: Chest is clear to auscultation. No rales, no rhonchi, no wheezes or cough is heard. HEART: Reveals irregularly irregular rate and rhythm. No murmurs, no gallops or rubs are noted. A 2/6 systolic ejection murmur is noted. The patient has an ascending aortic aneurysm, also which has been measured at 5.2 cm on ultrasound. She is refusing surgery. ABDOMEN: Soft, nontender, without organomegaly. Normal bowel sounds are noted in all 4 quadrants. No rebound or guarding is noted. GENITOURINARY: Deferred. EXTREMITIES: Reveal no clubbing, cyanosis or edema. NEUROLOGIC: The patient has no significant neurological defects. The patient has generalized weakne ss and generalized imbalance. She is much improved. IMPRESSION: 1. Acute on chronic systolic heart failure. 2. History of an ascending aortic aneurysm which is now 5.2 cm. 3. Hypertension. 4. History of arrhythmia. 5. Hyperlipidemia. 6. Atrial fibrillation. 7. Generalized weakness. PLAN: 1. Continue Lasix 40 mg daily. 2. Follow the patient's electrolytes closely. 3. Follow the patient's anemia. 4. Continue stress ulcer prophylaxis. 5. Deep venous thrombosis prophylaxis. 6. Decubitus precautions. 7. Continue PT and OT.
[2017-06-21] MEDS: Atorvastatin Calcium 20 MG TAB PO SCH (21:20)
[2017-06-21] MEDS: Montelukast Sodium 10 mg Tablet PO SCH (21:21)
[2017-06-22] MEDS: Furosemide 40 MG TAB PO SCH (08:05)
[2017-06-22] MEDS: Dronedarone HCl 400 MG TAB PO SCH (08:41)
[2017-06-22] MEDS: Hydrochlorothiazide 25 MG TAB PO SCH (08:43)
[2017-06-22] MEDS: Potassium Chloride 10 MEQ TAB PO SCH (08:46)
[2017-06-22] MEDS: Ferrous Sulfate 325 MG TAB PO SCH (08:48)
[2017-06-22] MEDS: Aspirin 81 mg Enteric Coated Tablet PO SCH (08:48)
[2017-06-22] MEDS: Bupropion 150 MG XL TAB PO SCH (08:48)
[2017-06-22 16:21] VITALS: BP 117/53; TEMP 96.7
--- NOTE | 2017-06-23 00:19 | DIS ---
DATE OF ADMISSION: 06/09/2017 DATE OF DISCHARGE: 06/23/2017 HOSPITAL COURSE: Ms. Meier is a very pleasant 86-year-old white female that presented to [facility] ER with acute respiratory failure. She was in acute congestive heart failure and chronic a trial fib. She has been in the hospital and diuresed. She eventually was stabilized and transferred to swing bed, to continue her physical therapy and occupational therapy. When she came in, she coul d not even get out of bed to walk to the bathroom, which is 4 feet away. Now, she is walking about 1 00 feet and much easier. She does not get short of breath anymore. She is able to get up and get ou t of bed and go to the bathroom by herself and she is much more independent. She has done exceedingl y well. SUBJECTIVE: The patient states she is doing better and ready for discharge today. She will be disch arged to the care of her family where she will go to her home and have someone stay with her for christel ral days. She is much improved. DISCHARGE MEDICATIONS: Are the following albuterol p.r.n., aspirin 81 mg a day, atorvastatin 20 mg a t bedtime, bupropion which is Wellbutrin-XL 150 mg daily, Tums p.r.n., vitamin D3 of 1000 mg daily, d iltiazem 240 mg each morning, Multaq 400 mg twice a day, ferrous sulfate 325 mg a day, Lasix 20 mg ea ch morning, hydrochlorothiazide 12.5 mg each morning, Avapro which is irbesartan 300 mg every mornin g, Imodium p.r.n., Milk of Magnesia p.r.n., metoprolol succinate 100 mg each morning, montelukast whi ch is Singulair 10 mg q.p.m., potassium chloride 10 mEq each morning, and Coumadin 4 mg each day. I did sit down and go over all the patient's medications and she said she had all of these at her [facility]. Vital signs today reveal blood pressure this morning 125/58, pulse 58-69, respirations 16-18, O2 sat 95%-96% on room air. Last reveal on 06/23/2017, her white count was 7600 with hemoglobin 11.7, hematocrit 37.2, platelet c ount 204,000. Her INR this morning was 2.4. On the 5th, her sodium was 139, potassium 4.2, chloride 102, carbon dioxide 29 with a BUN of 41, crea tinine 1.10. Her BNP was 506. This is all much improved. PHYSICAL EXAMINATION: GENERAL: This is a well-developed, well-nourished, very pleasant white female in no apparent distres s. HEENT: Reveals normocephalic, nontraumatic cranium. Pupils are equally round and reactive. Extraoc ular movements intact. Nose and throat are clear, slightly dry. NECK: Supple without mass, nodes, or bruits. CHEST: Clear to auscultation. No rales, no rhonchi, no wheezes and no cough is heard at this time. HEART: Reveals an irregularly irregular rate and rhythm. Patient does have a 2/6 systolic ejection murmur. Patient also has an ascending aortic aneurysm which is measured 5.2 cm on ultrasound this ad mission, but the patient states she will not have surgery on that. She is a DNR. ABDOMEN: Soft, nontender without organomegaly, normal bowel sounds are noted in all 4 quadrants. No rebound or guarding is noted. GENITOURINARY: Deferred. EXTREMITIES: No clubbing, cyanosis, or edema. NEUROLOGIC: The patient has no significant neurological deficits. The patient has generalized weakn ess which is significantly improved. Also, her generalized and balance is much improved. IMPRESSION: 1. Acute on chronic systolic heart failure. 2. History of ascending aortic aneurysm which is now 5.2 cm and patient denies surgery. 3. Hypertension. 4. History of arrhythmia. 5. A 2/6 systolic ejection murmur. 6. Hyperlipidemia. 7. Atrial fibrillation, chronic. 8. Generalized weakness. PLAN: 1. Continue patient's previous medications as noted. 2. Patient see me in 2-3 weeks. 3. Continue outpatient physical therapy and occupational therapy. 4. The patient is to take to [facility] and I have notified them. 5. Continue stress ulcer prophylaxis. 6. Continue decubitus precautions. 7. Continue DVT prophylaxis
== END 2017-06-22 15:35 | disposition home health service (06) | DRG 299 ==
LOC: NAV ACUTE 10:36 → EDBD 10:36
PROVIDERS: ADMIT Family Medicine; ATTEND Family Medicine
DX: I71.2 Thoracic aortic aneurysm, without rupture (principal); I50.23 Acute on chronic systolic (congestive) heart failure; I48.2 Chronic atrial fibrillation; I11.0 Hypertensive heart disease with heart failure; E78.5 Hyperlipidemia, unspecified; Z79.01 Long term (current) use of anticoagulants; F41.9 Anxiety disorder, unspecified; Z90.710 Acquired absence of both cervix and uterus; Z85.3 Personal history of malignant neoplasm of breast; Z90.49 Acquired absence of other specified parts of digestive tract; Z98.42 Cataract extraction status, left eye; Z98.41 Cataract extraction status, right eye; D64.9 Anemia, unspecified; Z66 Do not resuscitate
CPT/HCPCS: 36415; 80048; 80053; 83880; 85025; 85610; A4216; G8978-GP-CK; G8979-GP-CI; Q0162

== ENCOUNTER 2018-08-15 10:10 | Emergency (ER) | payer MEDICARE ==
[2018-08-15 11:06] LABS: #Basophils 0.1 thou/uL (0.0-0.2); #Eosinphils 0.1 thou/uL (0.0-0.7); #Lymphocytes 1.4 thou/uL (1.20-3.40); #Monocytes 0.6 thou/uL (0.11-0.59); #Neutrophils 5.9 thou/uL (1.40-6.50); %Basophils 0.8 % (0.0-1.0); %Eosinophils 0.8 % (0.0-10.0); %Monocytes 7.3 % (0.0-10.0); %Neutrophils 73.2 % (42.0-75.0); Hemoglobin 14.4 g/dL (12.0-16.0); Mean Corpuscular HGB CONC 32.1 g/dL (32.0-36.0); Mean Corpuscular Hemoglobin 28.6 pg (27.0-31.0); Mean Corpuscular Volume 89.1 fL (78.0-98.0); Mean Platelet Volume 6.9 fL (7.4-10.4); Platelet Count 196 thou/uL (130-400); Red Blood Cell (RBC) Count 5.04 mill/uL (4.20-5.40)
[2018-08-15 11:21] LABS: ALT (SGPT) 21 U/L (8-55); AST (SGOT) 28 U/L (5-34); Albumin 4.2 g/dL (3.4-4.8); Alkaline Phosphatase 66 U/L (40-150); Anion Gap 17 mmol/L (10-20); BUN (Urea Nitrogen) 20 mg/dL (9.8-20.1); Calc. Creatinine Clearance 0 mL/min (70-130); Calcium 9.4 mg/dL (7.8-10.44); Carbon Dioxide 24 mmol/L (23-31); Chloride 102 mmol/L (98-107); Estimated GFR-MDRD 49; Globulin 2.7 g/dL (2.4-3.5); Glucose 107 mg/dL (83-110); Potassium 3.5 mmol/L (3.5-5.1); Protein, Total 6.9 g/dL (6.0-8.3); Sodium 139 mmol/L (136-145)
--- NOTE | 2018-08-15 11:22 | RAD ---
XR Ribs Rt>= 2 View W/PA CXR History: Injury. Comparison: Radiograph June 06, 2017 Findings: Heart size is markedly enlarged. Lungs are clear. The aorta is aneurysmal. Left axillary scott rgical clips. Lungs are hyperinflated. No acute displaced rib fracture. Contour irregularity of the inferior endpla te of L1. Impression: 1. No acute displaced rib fracture. 2. Marked cardiomegaly. 3. Aneurysmal dilatation of the aorta. 4. Contour irregularity inferior endplate of L1, age indeterminant.
[2018-08-15 11:29] LABS: INR-International Normal Ratio 2.6; Prothrombin Time 27.3 SEC (12.0-14.7)
== END 2018-08-15 11:54 | disposition home or self-care (01) ==
LOC: NAV ERS 10:10
DX: S20.211A Contusion of right front wall of thorax, initial encounter (principal); R79.89 Other specified abnormal findings of blood chemistry; I25.10 Atherosclerotic heart disease of native coronary artery without angina pectoris; I11.0 Hypertensive heart disease with heart failure; I50.9 Heart failure, unspecified; Z79.899 Other long term (current) drug therapy; Z79.82 Long term (current) use of aspirin; Z79.01 Long term (current) use of anticoagulants; W06.XXXA Fall from bed, initial encounter
CPT/HCPCS: 80053; 83880; 84484; 85025; 85610; 93005

== ENCOUNTER 2019-07-26 14:26 | Emergency (ER) | payer MEDICARE ==
[2019-07-26 15:15] LABS: #Eosinphils 0.1 thou/uL (0.0-0.7); #Lymphocytes 1.5 thou/uL (1.20-3.40); #Monocytes 0.6 thou/uL (0.11-0.59); #Neutrophils 6.7 thou/uL (1.40-6.50); %Basophils 0.5 % (0.0-1.0); %Eosinophils 0.6 % (0.0-10.0); %Lymphocytes 17.1 % (21.0-51.0); %Monocytes 6.5 % (0.0-10.0); %Neutrophils 75.3 % (42.0-75.0); Hemoglobin 14.1 g/dL (12.0-16.0); Mean Corpuscular HGB CONC 31.5 g/dL (32.0-36.0); Mean Corpuscular Hemoglobin 28.9 pg (27.0-31.0); Mean Corpuscular Volume 91.5 fL (78.0-98.0); Mean Platelet Volume 7.4 fL (7.4-10.4); Platelet Count 213 thou/uL (130-400); Red Blood Cell (RBC) Count 4.89 mill/uL (4.20-5.40); White Blood Cell (WBC) Count 8.9 thou/uL (4.8-10.8)
--- NOTE | 2019-07-26 15:21 | RAD ---
Exam: Chest one view HISTORY:Dyspnea Comparison: 06/06/2017, 08/15/2018 FINDINGS: Cardiac silhouette:Stable cardiomegaly. Aorta: Stable aneurysmal dilatation and atherosclerosis of the aorta Pulmonary vessels: Normal Costophrenic angles: Small bilateral pleural effusions cannot be excluded. LUNGS: Hyperinflation with chronic changes. Pneumothorax: None Osseous abnormalities: No acute abnormality IMPRESSION: 1. Cardiomegaly. 2. Small bilateral pleural effusions present 3. Atherosclerosis and aneurysmal dilatation of the aorta 4. Stable COPD
[2019-07-26 15:34] LABS: INR-International Normal Ratio 1.9; PTT 40.2 sec (22.9-36.1); Prothrombin Time 22.1 sec (12.0-14.7)
[2019-07-26 15:35] LABS: ALT (SGPT) 22 U/L (8-55); AST (SGOT) 27 U/L (5-34); Albumin 4.2 g/dL (3.4-4.8); Alkaline Phosphatase 69 U/L (40-110); Anion Gap 17 mmol/L (10-20); BUN (Urea Nitrogen) 17 mg/dL (9.8-20.1); Bilirubin, Total 1.1 mg/dL (0.2-1.2); CK (CPK) 42 U/L (29-168); Calc. Creatinine Clearance 0 mL/min (70-130); Calcium 10.2 mg/dL (7.8-10.44); Carbon Dioxide 24 mmol/L (23-31); Chloride 97 mmol/L (98-107); Estimated GFR-MDRD 51; Globulin 2.8 g/dL (2.4-3.5); Glucose 156 mg/dL (83-110); Potassium 3.8 mmol/L (3.5-5.1); Sodium 134 mmol/L (136-145)
[2019-07-26 15:52] LABS: CKMB 1.3 ng/mL (0-6.6)
[2019-07-26] MEDS ORDERED: Furosemide 20 MG/2 ML VIAL ONE (16:22)
[2019-07-26 18:28] LABS: Troponin I 0.092 ng/mL (< 0.028)
== END 2019-07-26 18:24 | disposition short-term general hospital (02) ==
LOC: NAV ERS 14:26
DX: I11.0 Hypertensive heart disease with heart failure (principal); I50.9 Heart failure, unspecified; J90 Pleural effusion, not elsewhere classified; I25.10 Atherosclerotic heart disease of native coronary artery without angina pectoris; I48.91 Unspecified atrial fibrillation; E78.5 Hyperlipidemia, unspecified; E78.00 Pure hypercholesterolemia, unspecified; F41.9 Anxiety disorder, unspecified; Z79.01 Long term (current) use of anticoagulants; Z79.82 Long term (current) use of aspirin; Z79.899 Other long term (current) drug therapy; Z85.3 Personal history of malignant neoplasm of breast
CPT/HCPCS: 71045; 80053; 82550; 82553; 83880; 84484; 85025; 85610; 85730; 93005; 94760; 96374; J1940

== ENCOUNTER 2019-08-03 17:20 | Inpatient (IN) | payer MEDICARE ==
[2019-08-03 17:40] VITALS: BMI 21.9
[2019-08-03] MEDS ORDERED: Albuterol 200 PUFF (6.7GM INHALER) INH PRN (18:13)
[2019-08-03] MEDS ORDERED: Non-Formulary Item 1 EACH (Albuterol Sulfate [Proair Respiclick] 2 PUFF) IH PRN (19:18)
[2019-08-03] MEDS ORDERED: Warfarin Sodium 2 MG TAB PO SCH (20:45)
[2019-08-03] MEDS ORDERED: Pravastatin Sodium 40 MG TAB PO SCH (21:00)
[2019-08-03] MEDS ORDERED: Montelukast Sodium 10 mg Tablet PO SCH ×2 (21:00)
[2019-08-03] MEDS ORDERED: Atorvastatin Calcium 20 MG TAB PO SCH ×2 (21:00)
[2019-08-04 05:24] LABS: #Basophils 0.1 thou/uL (0.0-0.2); #Eosinphils 0.1 thou/uL (0.0-0.7); #Lymphocytes 1.8 thou/uL (1.20-3.40); #Monocytes 0.7 thou/uL (0.11-0.59); #Neutrophils 6.5 thou/uL (1.40-6.50); %Basophils 0.7 % (0.0-1.0); %Lymphocytes 19.3 % (21.0-51.0); Mean Corpuscular HGB CONC 31.6 g/dL (32.0-36.0); Mean Corpuscular Hemoglobin 28.5 pg (27.0-31.0); Mean Corpuscular Volume 90.3 fL (78.0-98.0); Mean Platelet Volume 7.4 fL (7.4-10.4); Platelet Count 203 thou/uL (130-400); RBC Distribution Width 12.6 % (11.5-14.5); Red Blood Cell (RBC) Count 5.27 mill/uL (4.20-5.40); White Blood Cell (WBC) Count 9.2 thou/uL (4.8-10.8)
[2019-08-04 05:31] LABS: Prothrombin Time 22.9 sec (12.0-14.7)
[2019-08-04 05:40] LABS: ALT (SGPT) 52 U/L (8-55); AST (SGOT) 38 U/L (5-34); Albumin 3.8 g/dL (3.4-4.8); Alkaline Phosphatase 65 U/L (40-110); Anion Gap 19 mmol/L (10-20); BUN (Urea Nitrogen) 98 mg/dL (9.8-20.1); Bilirubin, Total 0.8 mg/dL (0.2-1.2); Calc. Creatinine Clearance 20 mL/min (70-130); Calcium 9.4 mg/dL (7.8-10.44); Carbon Dioxide 27 mmol/L (23-31); Chloride 90 mmol/L (98-107); Estimated GFR-MDRD 26; Glucose 105 mg/dL (83-110); Potassium 3.9 mmol/L (3.5-5.1); Protein, Total 6.8 g/dL (6.0-8.3); Sodium 132 mmol/L (136-145)
[2019-08-04] MEDS ORDERED: Potassium Chloride 10 MEQ TAB PO SCH ×2 (08:00→09:00)
[2019-08-04] MEDS ORDERED: Ferrous Sulfate 325 MG TAB PO SCH (08:00)
[2019-08-04] MEDS ORDERED: Dronedarone HCl 400 MG TAB PO SCH ×2 (08:00)
[2019-08-04] MEDS ORDERED: Furosemide 20 MG TAB PO SCH ×2 (09:00)
[2019-08-04] MEDS ORDERED: Hydrochlorothiazide 25 MG TAB PO SCH ×2 (09:00)
[2019-08-04] MEDS ORDERED: IRBESARTAN PO SCH (09:00)
[2019-08-04] MEDS ORDERED: HYDROCHLOROTHIAZIDE PO SCH (09:00)
[2019-08-04] MEDS ORDERED: Losartan 25 MG TAB PO SCH (09:00)
[2019-08-04] MEDS ORDERED: Non-Formulary Item 1 EACH (Ferrous Sulfate [Iron] 325 MG) PO SCH (09:00)
[2019-08-04] MEDS ORDERED: Aspirin 81 mg Enteric Coated Tablet PO SCH ×2 (09:00)
[2019-08-04] MEDS ORDERED: Bupropion 150 MG XL TAB PO SCH ×2 (09:00)
[2019-08-04] MEDS ORDERED: Furosemide 40 MG TAB PO SCH ×2 (10:00→14:00)
[2019-08-04] MEDS ORDERED: Montelukast Sodium 10 mg Tablet PO SCH (10:00)
[2019-08-04] MEDS ORDERED: Metolazone 5 MG TAB PO SCH (10:00)
[2019-08-04] MEDS: Acetaminophen 500 MG TAB PO PRN ×3 (10:45→20:14)
[2019-08-04] MEDS ORDERED: Potassium Chloride 20 MEQ TAB PO SCH (10:45)
[2019-08-04] MEDS: Nitroglycerin 2% Ointment 1 INCH/1 GM Packet TOP SCH ×2 (11:43→17:58)
[2019-08-04] MEDS ORDERED: Spironolactone 25 MG TAB PO SCH (12:00)
[2019-08-04] MEDS ORDERED: Losartan Potassium 50 MG TAB PO SCH (17:00)
[2019-08-04] MEDS ORDERED: Warfarin Sodium 2 MG TAB PO SCH ×3 (17:00→17:30)
--- NOTE | 2019-08-04 17:40 | PRG ---
DATE OF SERVICE: 08/04/2019 SUBJECTIVE: The patient is complaining of left lower leg pain for the last 6 hours, worsening. She has no previous history. OBJECTIVE: VITAL SIGNS: Blood pressure is 144/64, pulse 69, O2 sats 96% on room air. LUNGS: Clear. CARDIAC: An irregular rhythm. ABDOMEN: Soft and nontender. EXTREMITIES: Left foot shows a cold left foot, markedly decreased from the right foot with absent pedal pulses, although there is a popliteal pulse. Significant tenderness to palpation. LABORATORY DATA: The patient is well anticoagulated with an INR of 2.0 and PT 22. White count is 9200, hematocrit 47, and hemoglobin 15. Sodium is 132, potassium 3.9, chloride 90, BUN 98, creatinine 1.81, and GFR 26. Magnesium 2.2. ASSESSMENT: 1. Acute onset of cold pulseless left foot in a patient with atrial fibrillation, and despite adequate anticoagulation, may have some arterial thrombus. Unable to do CT angio because of her decreased GFR and attempting to consult her facility administrator, Dr. Ames or his group for possible further evaluation. The patient has agreed to any further evaluation, even though she is a DNR and has refused further evaluation of her coronary system because of significant pain. 2. Atrial fibrillation with rate control and anticoagulation. 3. Systolic and diastolic heart failure, compensated. PLAN: 1. Transfer to [facility]. 2. Discuss with family. 3. The patient is a DNR. 4. I have called Dr. Flowers who is on-call for Dr. Ames with no response. Job ID: [id number]
[2019-08-04] MEDS ORDERED: Sodium Chloride 0.9% 20 ML ONE (19:52)
[2019-08-04 20:56] VITALS: BP 136/63; TEMP 97.6
--- NOTE | 2019-08-05 07:22 | HP ---
The patient of Dr. Marivel Tena. HISTORY OF PRESENT ILLNESS: The patient is an 88-year-old white female with a long history of chronic atrial fibrillation, congestive heart failure, 5.2 cm ascending aortic aneurysm, and SVT on chronic anticoagulation, who apparently presented to [facility] on July 25 with increasing shortness of breath, was found to have an exacerbation of congestive heart failure, possibly due to noncompliance to her medication. She denied any chest pain, but complained of shortness of breath on minimal exertion and orthopnea. She was therefore admitted to the [facility] where she was seen by our medical lab director, Dr. Ames and was found to have acute on chronic systolic and diastolic heart failure, which responded to aggressive diuresis, was found to have an elevated troponin, felt to be a non-ST DE, but the patient refused any further evaluation, only wanted conservative treatment, so therefore she was continued on her medications of furosemide 40 mg twice daily, Singulair 10 mg daily, KCl 10 mEq daily, diltiazem 240 daily, atorvastatin 20 nightly, metoprolol 100 daily, irbesartan 300 daily which was substituted to losartan 100 mg daily, warfarin 4 daily, and furosemide 40 twice daily. Her hydrochlorothiazide and her Multaq were discontinued. She was back to her baseline, was ambulating at that time, was very weak; however, was transferred to [facility] for more therapy. However, she has begun to complain of some pain in her legs. There is some confusion about her medications and this was finally determined after reviewing partially of the old chart and there was no doc-to-doc conversation. PAST MEDICAL HISTORY: Positive for hypertension, atrial fibrillation, aortic aneurysm 5.2 cm since 2018, hyperlipidemia, hypercholesterolemia, anemia, and SVT. PAST SURGICAL HISTORY: Positive for appendectomy, hysterectomy, fibrocystic disease surgery in 1997 and 1998, right cataract surgery, cholecystectomy, and abdominal hernia repair. FAMILY MEDICAL HISTORY: Positive for both parents dying of DE. Two daughters alive and healthy. SOCIAL HISTORY: She is nonsmoker and nondrinker. Retired and . She lives alone with no pets. MEDICATIONS: As above. REVIEW OF SYSTEMS: HEENT: She denies any fever, chills, sweats, or headaches. PULMONARY: She denies cough, sputum production, pneumonia, asthma, or tuberculosis. She has dyspnea on walking down the dudley, but not at rest. CARDIOVASCULAR: She denies any chest pain, palpitations, or paroxysmal nocturnal dyspnea. GASTROINTESTINAL: She denies nausea, vomiting, diarrhea, constipation, or abdominal pain. GENITOURINARY: Denies dysuria, hematuria, or nocturia. MUSCULOSKELETAL: Complains of generalized weakness, but no significant joint pain. PHYSICAL EXAMINATION: GENERAL: The patient is an elderly white female, in no acute distress. VITAL SIGNS: Showed to have blood pressure of 123/59, temperature 96, pulse 69, respirations 16, and O2 saturations 95% on room air. HEENT: Pupils are equal, round, and reactive to light and accommodation. Sclerae anicteric. Conjunctivae pale. Oral mucous membranes well hydrated. NECK: Supple. JVP is not elevated at 30 degrees. Carotids are 2+ and equal without bruits. LUNGS: Show good breath sounds, only few rales in the bases and decreased breath sounds at bases. CARDIAC: Shows an irregularly irregular rhythm. PMI in the fifth intercostal, midclavicular line. ABDOMEN: Soft and nontender. Good bowel sounds. SKIN/EXTREMITIES: Show no edema, clubbing, or cyanosis. There are varicose veins. There is decreased, but palpable pedal pulses. NEUROLOGIC: Intact. ASSESSMENT: 1. Stabilizing systolic and diastolic heart failure. 2. Severe peripheral vascular disease with 5.2 aortic aneurysm with conservative treatment. 3. Atrial fibrillation with rate control on anticoagulation. 4. Hypertension, controlled to goal. 5. Deconditioning, severe. 6. Chronic kidney disease, stage 4. PLAN: 1. Continue PT/OT. 2. Continue hospital medications as far as with discontinuation of Multaq, continuation of Cardizem, metoprolol, and furosemide. Continue to monitor renal function closely. The patient is a DNR at her request. Job ID: [id number]
[2019-08-05] MEDS ORDERED: Potassium Chloride 20 MEQ TAB PO SCH (08:00)
[2019-08-05] MEDS ORDERED: Metolazone 5 MG TAB PO SCH (08:30)
[2019-08-05] MEDS ORDERED: Montelukast Sodium 10 mg Tablet PO SCH (09:00)
== END 2019-08-04 20:25 | disposition short-term general hospital (02) | DRG 281 ==
LOC: NAV ACUTE 17:20
PROVIDERS: ADMIT Family Medicine; ATTEND Family Medicine
DX: I13.0 Hypertensive heart and chronic kidney disease with heart failure and stage 1 through stage 4 chronic kidney disease, or unspecified chronic kidney disease (principal); I21.4 Non-ST elevation (NSTEMI) myocardial infarction; I50.42 Chronic combined systolic (congestive) and diastolic (congestive) heart failure; N18.4 Chronic kidney disease, stage 4 (severe); I48.20 Chronic atrial fibrillation, unspecified; I47.1 Supraventricular tachycardia; Z66 Do not resuscitate; R53.81 Other malaise; E78.00 Pure hypercholesterolemia, unspecified; E78.5 Hyperlipidemia, unspecified; I73.9 Peripheral vascular disease, unspecified; I71.4 Abdominal aortic aneurysm, without rupture; D63.1 Anemia in chronic kidney disease; Z79.01 Long term (current) use of anticoagulants; Z90.49 Acquired absence of other specified parts of digestive tract; Z90.710 Acquired absence of both cervix and uterus
CPT/HCPCS: 36415; 80053; 83735; 85025; 85610